=== PATIENT | male | born 1980 | race African-American/Black ===

== ENCOUNTER 2017-05-11 20:47 | Inpatient (IN) | payer BC ==
[~2017-05-11] VITALS: Ht 177.8 cm; Wt 88.0 kg
[2017-05-12] VITALS (13 sets, daily range): BP systolic 107–129; BP diastolic 55–83
[2017-05-12] MEDS ORDERED: Morphine Sulfate 2mg/ml Inj IVP PRN ×3 (01:00→13:00)
[2017-05-12] MEDS ORDERED: Zosyn 3.375gm inj ONE (01:45)
[2017-05-12] MEDS ORDERED: D5 1/2NS 1,000 ML IV SCH (02:00)
[2017-05-12] MEDS: Piperacillin/Tazobactam 3.375 GM in D5W 110 ML IVPB SCH ×3 (02:09→19:08)
[2017-05-12] MEDS: Norco 5mg/325mg tab ORAL PRN (05:25)
[2017-05-12 06:45] LABS: BASOPHILS % (AUTO) 0.6 % (0.0-2.0); EOSINOPHILS % (AUTO) 0.5 % (0.0-3.0); MEAN CORPUSCULAR HEMOGLOBIN 32.2 PG (27.0-31.0); MEAN CORPUSCULAR VOLUME 98 FL (80-99); MEAN PLATELET VOLUME 11.3 FL (6.5-10.1); MONOCYTES % (AUTO) 6.7 % (1.0-10.0); NEUTROPHILS % (AUTO) 79.1 % (45.0-75.0); PLATELET COUNT 142 K/UL (150-450); RED BLOOD COUNT 4.29 M/UL (4.70-6.10); RED CELL DISTRIBUTION WIDTH 12.1 % (11.6-14.8); WHITE BLOOD COUNT 9.2 K/UL (4.8-10.8)
[2017-05-12 07:39] LABS: ALANINE AMINOTRANSFERASE 9 U/L (3-41); ANION GAP 11 (5-15); ASPARTATE AMINO TRANSFERASE 19 U/L (5-40); CALCIUM 8.8 mg/dL (8.6-10.2); CARBON DIOXIDE 25 mEQ/L (20-30); CHLORIDE 101 mEQ/L (98-107); CREATININE 1.2 mg/dL (0.7-1.2); GLOMERULAR FILTRATION RATE > 60 mL/min (>60); HEMOLYSIS 2; MAGNESIUM 1.8 mg/dL (1.7-2.5); PHOSPHORUS 2.7 mg/dL (2.5-4.8); POTASSIUM 3.8 mEQ/L (3.4-4.9); SODIUM 137 mEQ/L (135-145); TOTAL PROTEIN 6.6 g/dL (6.6-8.7)
[2017-05-12 08:00] LABS: BILIRUBIN,DIRECT 0.3 mg/dL (0.1-0.3)
[2017-05-12] MEDS ORDERED: Acetaminophen 650 MG SUPP RECTAL PRN (09:45)
--- NOTE | 2017-05-12 09:59 | Consultation ---
History of Present Illness General Date patient seen: May 12, 2017 Time patient seen: 09:15 Chief Complaint: abd pain , Referring physician: dr Whatley Reason for Consultation: inpatient management Present Illness HPI 37 y/o male w/out any significant medical history ( except hx of umbilical hernia repair as a child) transferred from [facility] with abdominal pain x 3 days, nausea. no vomiting, Fevers and chills No BM Workup in [place] ( CT A/P) revealed acute appy, possible perforation due to presence of foci of pneumoperitoneum in the non-dependent abdomen abdomen US revealed no gallstones, negative [place] patient started on IV abx( Zosyn), IVF, kept NPO, a/emetic provided and [place] [facility] Currently admits to diffused abdominal pain, nausea, no vomiting, no BM Pain nonradiating, 4-5/on a scale 1 to 10 Allergies: Coded Allergies: No Known Allergies (Unverified , 05/11/17) Patient History History Provided By: Patient Healthcare decision maker Resuscitation status Full Code Advanced Directive on File Yes Review of Systems Constitutional: Reports: see HPI Eye: Reports: no symptoms ENT: Reports: no symptoms Respiratory: Reports: no symptoms Gastrointestinal: Reports: see HPI Genitourinary: Reports: no symptoms Musculoskeletal: Reports: no symptoms Skin: Reports: no symptoms Psychiatric: Reports: no symptoms Neurological: Reports: no symptoms Endocrine: Reports: no symptoms Hematologic/Lymphatic: Reports: no symptoms Physical Exam General Appearance: no apparent distress, alert Lines, tubes and drains: peripheral HEENT: normocephalic, atraumatic, anicteric Neck: supple Respiratory/Chest: lungs clear, no respiratory distress, no accessory muscle use Cardiovascular/Chest: normal peripheral pulses, normal rate, regular rhythm Abdomen: other - distended, diffused tenderness ower abdomen, more on the right , no rigidity, no rebound; hypoactive BS Extremities: normal range of motion, non-tender, no calf tenderness, normal capillary refill Skin Exam: normal pigmentation, warm/dry 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, no motor/sensory deficits, alert, oriented x 3, responsive Musculoskeletal: normal muscle bulk Last 24 Hour Vital Signs Date Time Temp Pulse Resp B/P Pulse Ox O2 Delivery O2 Flow Rate FiO2 05/12/17 08:00 98.2 70 20 122/83 96 Room Air 05/12/17 04:00 99.5 92 20 109/76 94 Room Air Intake and Output 05/11/17 05/12/17 19:00 07:00 Intake Total 110.0 ml Balance 110.0 ml Intake IV Total 110.0 ml # Voids 1 Laboratory Tests Test 05/12/17 05:05 White Blood Count 9.2 K/UL (4.8-10.8) Red Blood Count 4.29 M/UL (4.70-6.10) L Hemoglobin 13.8 G/DL (14.2-18.0) L Hematocrit 41.8 % (42.0-52.0) L Mean Corpuscular Volume 98 FL (80-99) Mean Corpuscular Hemoglobin 32.2 PG (27.0-31.0) H Mean Corpuscular Hemoglobin Concent 33.0 G/DL (32.0-36.0) Red Cell Distribution Width 12.1 % (11.6-14.8) Platelet Count 142 K/UL (150-450) L Mean Platelet Volume 11.3 FL (6.5-10.1) H Neutrophils (%) (Auto) 79.1 % (45.0-75.0) H Lymphocytes (%) (Auto) 13.0 % (20.0-45.0) L Monocytes (%) (Auto) 6.7 % (1.0-10.0) Eosinophils (%) (Auto) 0.5 % (0.0-3.0) Basophils (%) (Auto) 0.6 % (0.0-2.0) Sodium Level 137 mEQ/L (135-145) Potassium Level 3.8 mEQ/L (3.4-4.9) Chloride Level 101 mEQ/L (98-107) Carbon Dioxide Level 25 mEQ/L (20-30) Anion Gap 11 (5-15) Blood Urea Nitrogen 11 mg/dL (7-23) Creatinine 1.2 mg/dL (0.7-1.2) Estimat Glomerular Filtration Rate > 60 mL/min (>60) Glucose Level 99 mg/dL (74-106) Calcium Level 8.8 mg/dL (8.6-10.2) Phosphorus Level 2.7 mg/dL (2.5-4.8) Magnesium Level 1.8 mg/dL (1.7-2.5) Total Bilirubin 2.3 mg/dL (0.0-1.2) H Direct Bilirubin 0.3 mg/dL (0.1-0.3) Aspartate Amino Transf (AST/SGOT) 19 U/L (5-40) Alanine Aminotransferase (ALT/SGPT) 9 U/L (3-41) Alkaline Phosphatase 59 U/L (40-129) Total Protein 6.6 g/dL (6.6-8.7) Albumin 3.3 g/dL (3.5-5.2) L Globulin 3.3 g/dL Albumin/Globulin Ratio 1.0 (1.0-2.7) Height (Feet): 5 Height (Inches): 10.00 Weight (Pounds): 194 Medications Current Medications Medications (Trade) Dose Ordered Sig/Jonnie Route PRN Reason Start Time Stop Time Status Last Admin Dose Admin Acetaminophen (Tylenol) 650 mg Q4H PRN ORAL FEVER 05/12/17 09:00 06/11/17 08:59 Acetaminophen (Tylenol) 650 mg Q4H PRN ORAL Mild Pain (Pain Scale 1-3) 05/12/17 09:00 06/11/17 08:59 Acetaminophen (Tylenol) 650 mg Q4H PRN RECTAL Prn Headache/Temp > 100.5 05/12/17 09:45 06/11/17 09:44 Acetaminophen/ Hydrocodone Bitart ([place] 5/325) 1 tab Q6H PRN ORAL Moderate Pain (Pain Scale 4-6) 05/12/17 01:00 05/19/17 00:59 05/12/17 05:25 Bisacodyl (Dulcolax) 10 mg DAILYPRN PRN RECTAL Constipation 05/12/17 09:00 06/11/17 08:59 Dextrose/Sodium Chloride (D5 0.45% NS) 1,000 ml @ 100 mls/hr Q10H IV 05/12/17 02:00 06/11/17 01:59 05/12/17 02:08 Morphine Sulfate (Morphine Sulfate) 2 mg Q4H PRN IVP Severe Pain (Pain Scale 7-10) 05/12/17 01:00 05/19/17 00:59 Ondansetron HCl (Zofran) 4 mg Q6H PRN IVP Nausea & Vomiting 05/12/17 01:00 06/11/17 00:59 Piperacillin Sod/ Tazobactam Sod 3.375 gm/Dextrose 110 ml @ 27.5 mls/hr Q8H IVPB 05/12/17 02:00 05/19/17 01:59 05/12/17 02:09 Polyethylene Glycol (Miralax) 17 gm DAILY PRN ORAL Constipation 05/12/17 09:00 06/11/17 08:59 Temazepam (Restoril) 15 mg HSPRN PRN ORAL Insomnia 05/12/17 09:00 05/19/17 08:59 Assessment/Plan Assessment/Plan ASSESSMENT acute appy possible perforation possible ileus hx of umbilical hernia repair ( as a child) PLAN OF CARE [facility] floor NPO IVF empiric abx surgery consult pain management a/emetic prn case discussed and evaluated by supervising physician Shelli Alvarez (Vanchtein) [employer]ATH HOUSE ATTENDANT May 12, 2017 09:59
--- NOTE | 2017-05-12 10:00 | Consultation ---
History of Present Illness General Date patient seen: May 12, 2017 Reason for Consultation: acute appendicitis Present Illness HPI 37 year old otherwise healthy male with acute appendicitis. Patient states that he noted some vague cramping lower abdominal pain 2 days ago. Since pain has worsened and localized to RLQ. Was unable to walk because of pain. Pain currently sharp RLQ / lower abdominal pain. Went to outside facility where he had CT scan which demonstrated acute appendicitis with possible small perforation. He was transferred to [facility] [place] for care. States that he is better now because of pain medication but still notes pain in lower abdomen. no nausea or emesis. subjective fevers. Leukocytosis of 11k at outside facility. Allergies: Coded Allergies: No Known Allergies (Unverified , 05/11/17) Patient History History Provided By: Patient Healthcare decision maker Resuscitation status Full Code Advanced Directive on File Yes Past Medical/Surgical History Past Medical/Surgical History: (1) History of umbilical hernia repair (2) Appendicitis with perforation Review of Systems Constitutional: Denies: chills, fever, malaise, no symptoms, other, see HPI, sweats, weakness Eye: Denies: acuity changes, blurred vision, discharge, double vision, eye pain , no symptoms, nose congestion, nose pain, other, see HPI, tearing ENT: Denies: ear discharge, ear pain, hearing loss, mouth pain, nasal discharge , no symptoms, nose congestion, nose pain, other, see HPI, throat pain, throat swelling Respiratory: Denies: AGUILAR, cough, no symptoms, orthopnea, other, see HPI, shortness of breath, sputum, stridor, wheezing Cardiovascular: Denies: PND, chest pain, edema, no symptoms, other, palpitations, see HPI, syncope Gastrointestinal: Reports: abdominal pain Genitourinary: Denies: discharge, dysuria, frequency, hematuria, incontinence, no symptoms, other, pain, retention, see HPI, urgency, vag bleed/dc Musculoskeletal: Denies: back pain, gout, joint pain, joint swelling, muscle pain, muscle stiffness, no symptoms, other, see HPI Skin: Denies: change in color, change in hair/nails, dryness, lesions, no symptoms, other, rash, see HPI Psychiatric: Denies: HI, SI, anxiety, depressed feelings, emotional problems, hallucinations, no symptoms, other, prior hx, see HPI Neurological: Denies: dizziness, focal weakness, headache, no symptoms, numbness, other, paresthesia, see HPI, seizure, syncope, tingling, tremors Endocrine: Denies: excessive sweating, flushing, increased thirst, increased urine, intolerance to temperature, no symptoms, other, see HPI, unexplained weight loss Hematologic/Lymphatic: Denies: anemia, blood clots, diathesis, easy bleeding, easy bruising, no symptoms, other, see HPI, swollen glands Physical Exam General Appearance: WD/WN, no apparent distress, alert Lines, tubes and drains: peripheral HEENT: normocephalic, PERRL Neck: normal inspection Respiratory/Chest: normal breath sounds, no respiratory distress, no accessory muscle use Cardiovascular/Chest: normal peripheral pulses, normal rate, regular rhythm Abdomen: normal bowel sounds, soft, no organomegaly, no mass, guarding, rebound , tender Extremities: normal range of motion, normal inspection Skin Exam: normal pigmentation Neurologic: alert, oriented x 3, responsive Last 24 Hour Vital Signs Date Time Temp Pulse Resp B/P Pulse Ox O2 Delivery O2 Flow Rate FiO2 05/12/17 08:00 98.2 70 20 122/83 96 Room Air 05/12/17 04:00 99.5 92 20 109/76 94 Room Air Intake and Output 05/11/17 05/12/17 19:00 07:00 Intake Total 110.0 ml Balance 110.0 ml Intake IV Total 110.0 ml # Voids 1 Laboratory Tests Test 05/12/17 05:05 White Blood Count 9.2 K/UL (4.8-10.8) Red Blood Count 4.29 M/UL (4.70-6.10) L Hemoglobin 13.8 G/DL (14.2-18.0) L Hematocrit 41.8 % (42.0-52.0) L Mean Corpuscular Volume 98 FL (80-99) Mean Corpuscular Hemoglobin 32.2 PG (27.0-31.0) H Mean Corpuscular Hemoglobin Concent 33.0 G/DL (32.0-36.0) Red Cell Distribution Width 12.1 % (11.6-14.8) Platelet Count 142 K/UL (150-450) L Mean Platelet Volume 11.3 FL (6.5-10.1) H Neutrophils (%) (Auto) 79.1 % (45.0-75.0) H Lymphocytes (%) (Auto) 13.0 % (20.0-45.0) L Monocytes (%) (Auto) 6.7 % (1.0-10.0) Eosinophils (%) (Auto) 0.5 % (0.0-3.0) Basophils (%) (Auto) 0.6 % (0.0-2.0) Sodium Level 137 mEQ/L (135-145) Potassium Level 3.8 mEQ/L (3.4-4.9) Chloride Level 101 mEQ/L (98-107) Carbon Dioxide Level 25 mEQ/L (20-30) Anion Gap 11 (5-15) Blood Urea Nitrogen 11 mg/dL (7-23) Creatinine 1.2 mg/dL (0.7-1.2) Estimat Glomerular Filtration Rate > 60 mL/min (>60) Glucose Level 99 mg/dL (74-106) Calcium Level 8.8 mg/dL (8.6-10.2) Phosphorus Level 2.7 mg/dL (2.5-4.8) Magnesium Level 1.8 mg/dL (1.7-2.5) Total Bilirubin 2.3 mg/dL (0.0-1.2) H Direct Bilirubin 0.3 mg/dL (0.1-0.3) Aspartate Amino Transf (AST/SGOT) 19 U/L (5-40) Alanine Aminotransferase (ALT/SGPT) 9 U/L (3-41) Alkaline Phosphatase 59 U/L (40-129) Total Protein 6.6 g/dL (6.6-8.7) Albumin 3.3 g/dL (3.5-5.2) L Globulin 3.3 g/dL Albumin/Globulin Ratio 1.0 (1.0-2.7) Height (Feet): 5 Height (Inches): 10.00 Weight (Pounds): 194 Medications Current Medications Medications (Trade) Dose Ordered Sig/Jonnie Route PRN Reason Start Time Stop Time Status Last Admin Dose Admin Acetaminophen (Tylenol) 650 mg Q4H PRN ORAL FEVER 05/12/17 09:00 06/11/17 08:59 Acetaminophen (Tylenol) 650 mg Q4H PRN ORAL Mild Pain (Pain Scale 1-3) 05/12/17 09:00 06/11/17 08:59 Acetaminophen (Tylenol) 650 mg Q4H PRN RECTAL Prn Headache/Temp > 100.5 05/12/17 09:45 06/11/17 09:44 Acetaminophen/ Hydrocodone Bitart ([place] 5/325) 1 tab Q6H PRN ORAL Moderate Pain (Pain Scale 4-6) 05/12/17 01:00 05/19/17 00:59 05/12/17 05:25 Bisacodyl (Dulcolax) 10 mg DAILYPRN PRN RECTAL Constipation 05/12/17 09:00 06/11/17 08:59 Dextrose/Sodium Chloride (D5 0.45% NS) 1,000 ml @ 100 mls/hr Q10H IV 05/12/17 02:00 06/11/17 01:59 05/12/17 02:08 Morphine Sulfate (Morphine Sulfate) 2 mg Q4H PRN IVP Severe Pain (Pain Scale 7-10) 05/12/17 01:00 05/19/17 00:59 Ondansetron HCl (Zofran) 4 mg Q6H PRN IVP Nausea & Vomiting 05/12/17 01:00 06/11/17 00:59 Piperacillin Sod/ Tazobactam Sod 3.375 gm/Dextrose 110 ml @ 27.5 mls/hr Q8H IVPB 05/12/17 02:00 05/19/17 01:59 05/12/17 02:09 Polyethylene Glycol (Miralax) 17 gm DAILY PRN ORAL Constipation 05/12/17 09:00 06/11/17 08:59 Temazepam (Restoril) 15 mg HSPRN PRN ORAL Insomnia 05/12/17 09:00 05/19/17 08:59 Assessment/Plan Problem List: (1) Appendicitis with perforation Assessment & Plan: 37M acute appendicitis. Low grade fevers, labs okay, exam with focal RLQ tenderness, rebound, guarding, CT scan with acute appy possible perforation. -NPO with IV fluids -IV Abx -To OR for lap vs open appendectomy -Consent in chart ICD Codes: K35.2 - Acute appendicitis with generalized peritonitis SNOMED: [id number], [id number] Status: stable [email or web address] May 12, 2017 10:00
--- NOTE | 2017-05-12 10:01 | Pre-Procedure Note/Attestation ---
Pre-Procedure Note/Attestation Complete Prior to Procedure Planned Procedure: not applicable Procedure Narrative: lap vs open appendectomy Indications for Procedure Pre-Operative Diagnosis: acute appendicitis Attestation I attest that I discussed the nature of the procedure; its benefits; risks and complications; and alternatives (and the risks and benefits of such alternatives ), prior to the procedure, with the patient (or the patient's legal assistance representative). I attest that, if there was a reasonable possibility of needing a blood transfusion, the patient (or the patient's legal assistance representative) was given the [facility] standardized written summary, pursuant to the [place] Blood Safety Act ([place] Health and Safety Code # 1645, as amended). I attest that I re-evaluated the patient just prior to the surgery and that there has been no change in the patient's H&P, except as documented below: Timothy Pacheco May 12, 2017 10:01
[2017-05-12 10:22] LABS: INR 1.1 (0.9-1.1); PROTHROMBIN TIME 11.2 SEC (9.30-11.50)
[2017-05-12] MEDS ORDERED: Propofol 10mg/ml 20ml IV ONE ×2 (11:00→11:04)
[2017-05-12] MEDS ORDERED: NS Irrig 2000ml IRRIG ONE ×2 (11:00→11:34)
[2017-05-12] MEDS ORDERED: Ketorolac 30mg Inj ONE (11:00)
[2017-05-12] MEDS ORDERED: Bupivacaine w/Epi 0.5% 30ml Vial INJ ONE (11:00)
[2017-05-12] MEDS ORDERED: Glycopyrrolate 0.2mg/ml 1ml Vial ONE (11:00)
[2017-05-12] MEDS ORDERED: Zemuron 50mg/5ml Inj IV ONE (11:00)
[2017-05-12] MEDS ORDERED: Neostigmine 1mg/ml 10ml Inj ONE (11:00)
[2017-05-12] MEDS ORDERED: fentaNYL 100 mcg/2 mL IV ONE (11:00)
[2017-05-12] MEDS ORDERED: Midazolam 2mg/2ml Inj ONE (11:00)
[2017-05-12] MEDS ORDERED: Sterile Water Irrig 1000ml IRRIG ONE (11:00)
[2017-05-12] MEDS ORDERED: LR 1000ml ONE (11:00)
[2017-05-12] MEDS ORDERED: LR 1000ml 1,000 ML IVLG SCH (11:55)
--- NOTE | 2017-05-12 11:55 | Anethesia Preoperative Eval ---
Anesthesia Pre-op PMH/ROS General Date of Evaluation: May 12, 2017 Time of Evaluation: 10:57 Anesthesiologist: rosina ASA Score: ASA 2 Mallampati Score Class I : Soft palate, uvula, fauces, pillars visible Class II: Soft palate, uvula, fauces visible Class III: Soft palate, base of uvula visible Class IV: Only hard plate visible Mallampati Classification: Class II Surgeon: Josse Diagnosis: Acute appendicitis Surgical Procedure: Laparoscopic appendectomy Anesthesia History: none Family History: no anesthesia problems Allergies: Coded Allergies: No Known Allergies (Unverified , 05/11/17) Medications: see eMAR Past Medical History Cardiovascular: Denies: CAD, HTN, [place], arrhythmia, other, valve dz Pulmonary: Denies: COPD, DAVIN, asthma, other Gastrointestinal/Genitourinary: Reports: GERD - mild, Denies: CRI, ESRD, other Neurologic/Psychiatric: Denies: CVA, TIA, dementia, depression/anxiety, other Endocrine: Denies: DM, hypothyroidism, other, steroids HEENT: Denies: [place] (L), [place] (R), cataract (L), cataract (R), glaucoma, other Hematology/Immune: Denies: DVT, anemia, bleeding disorder, other Musculoskeletal/Integumentary: Denies: DDD, DJD, OA, RA, edema, other PMH Narrative: as above admitted for acute abdominal pain PSxH Narrative: Hernia repair Anesthesia Pre-op Phys. Exam Physician Exam Last Vital Signs Date Time Temp Pulse Resp B/P Pulse Ox O2 Delivery O2 Flow Rate FiO2 05/12/17 11:08 98.2 05/12/17 08:00 70 20 122/83 96 Room Air Constitutional: NAD Neurologic: CN 2-12 intact Cardiovascular: RRR, no M/R/G Respiratory: CTA Gastrointestinal: other - some tenderness Airway Exam Mallampati Score: Class II MO: full Neck: flexible ROM: full Teeth: intact Dentures: no lower, no upper Anesthesia Pre-op A/P Labs Hematology Test 05/12/17 05:05 White Blood Count 9.2 K/UL (4.8-10.8) Red Blood Count 4.29 M/UL (4.70-6.10) L Hemoglobin 13.8 G/DL (14.2-18.0) L Hematocrit 41.8 % (42.0-52.0) L Mean Corpuscular Volume 98 FL (80-99) Mean Corpuscular Hemoglobin 32.2 PG (27.0-31.0) H Mean Corpuscular Hemoglobin Concent 33.0 G/DL (32.0-36.0) Red Cell Distribution Width 12.1 % (11.6-14.8) Platelet Count 142 K/UL (150-450) L Mean Platelet Volume 11.3 FL (6.5-10.1) H Neutrophils (%) (Auto) 79.1 % (45.0-75.0) H Lymphocytes (%) (Auto) 13.0 % (20.0-45.0) L Monocytes (%) (Auto) 6.7 % (1.0-10.0) Eosinophils (%) (Auto) 0.5 % (0.0-3.0) Basophils (%) (Auto) 0.6 % (0.0-2.0) Coagulation Test 05/12/17 06:30 Prothrombin Time 11.2 SEC (9.30-11.50) Prothromb Time International Ratio 1.1 (0.9-1.1) Activated Partial Thromboplast Time 37 SEC (23-33) H Chemistry Test 05/12/17 05:05 Sodium Level 137 mEQ/L (135-145) Potassium Level 3.8 mEQ/L (3.4-4.9) Chloride Level 101 mEQ/L (98-107) Carbon Dioxide Level 25 mEQ/L (20-30) Anion Gap 11 (5-15) Blood Urea Nitrogen 11 mg/dL (7-23) Creatinine 1.2 mg/dL (0.7-1.2) Estimat Glomerular Filtration Rate > 60 mL/min (>60) Glucose Level 99 mg/dL (74-106) Calcium Level 8.8 mg/dL (8.6-10.2) Phosphorus Level 2.7 mg/dL (2.5-4.8) Magnesium Level 1.8 mg/dL (1.7-2.5) Total Bilirubin 2.3 mg/dL (0.0-1.2) H Direct Bilirubin 0.3 mg/dL (0.1-0.3) Aspartate Amino Transf (AST/SGOT) 19 U/L (5-40) Alanine Aminotransferase (ALT/SGPT) 9 U/L (3-41) Alkaline Phosphatase 59 U/L (40-129) Total Protein 6.6 g/dL (6.6-8.7) Albumin 3.3 g/dL (3.5-5.2) L Globulin 3.3 g/dL Albumin/Globulin Ratio 1.0 (1.0-2.7) Risk Assessment & Plan Assessment: ASA 2 E Plan: GA with ETT Status Change Before Surgery: No Pre-Antibiotics Drug: Ancef 1 gr. Given Within 1 Hr of Incision: Yes Time Given: 11:24 LYSSA PORRAS M.D. May 12, 2017 11:55
[2017-05-12] MEDS ORDERED: Hydromorphone 0.5mg/0.5ml inj IVP PRN (12:00)
[2017-05-12] MEDS ORDERED: Meperidine 25mg/0.5ml Inj IV PRN (12:00)
[2017-05-12] MEDS ORDERED: Ketorolac 30mg Inj IV PRN (12:00)
[2017-05-12] MEDS ORDERED: Metoclopramide 10mg/2ml Inj IVP PRN (12:00)
[2017-05-12] MEDS ORDERED: DiphenhydrAMINE 50mg/ml Inj IVP PRN (12:00)
--- NOTE | 2017-05-12 12:52 | Brief Operative Note ---
Immediate Post Operative Note Operative Note Pre-op Diagnosis: acute appendicitis Procedure: laparoscopic appendectomy Post-op Diagnosis: Acute Superlative appendicitis Surgeon: Tara Additional Surgeons: Josse Anesthesiologist: Yury Anesthesia: general Specimen: yes - appendix Complications: none Condition: stable Fluids: see records Estimated Blood Loss: minimal Drains: ALESIA Implant(s) used?: No Timothy Pacheco May 12, 2017 12:52
[2017-05-12] MEDS ORDERED: Ketorolac 30mg Inj IM PRN (13:00)
--- NOTE | 2017-05-12 13:04 | Immediate Post-Op Evaluation ---
Immediate Post-Op Evalulation Immediate Post-Op Evalulation Procedure: Laparoscopic appendectomy Date of Evaluation: May 12, 2017 Time of Evaluation: 13:03 IV Fluids: 1000 Blood Products: none Estimated Blood Loss: 50 Urinary Output: none Blood Pressure Systolic: 107 Blood Pressure Diastolic: 55 Pulse Rate: 76 Respiratory Rate: 20 O2 Sat by Pulse Oximetry: 99 Temperature (Fahrenheit): 97.6 Pain Score (1-10): 2 Nausea: No Vomiting: No Complications none Patient Status: reacts, patent, extubated, none Hydration Status: adequate LYSSA PORRAS M.D. May 12, 2017 13:04
--- NOTE | 2017-05-12 13:27 | Consultation ---
Consult Note Consult Note ID DIC# [id number] SUSAN NICHOLS M.D. May 12, 2017 13:27
--- NOTE | 2017-05-12 14:13 | History & Physical ---
History and Physical History & Physicial Dictated for Int Med-Dr Whatley no. [id number]. CATE PULIDO May 12, 2017 14:13
--- NOTE | 2017-05-12 16:16 | Consultation ---
DATE OF CONSULTATION: INFECTIOUS DISEASES CONSULTATION CONSULTING PHYSICIAN: Cesar Shane M.D. REQUESTING PHYSICIAN: 1. Misael Whatley M.D. 2. Darron Wilson M.D. REASON FOR CONSULTATION: Evaluation of the patient for perforated appendicitis and antibiotic management. HISTORY OF PRESENT ILLNESS: The patient is a 37-year-old male, who was admitted to this medical center for abdominal pain x2 days. CT scan reported, which showed evidence of acute appendicitis and possibly small perforation. At the time of my review, the patient was taken for surgery. Most of the information gathered through the chart. PAST MEDICAL HISTORY: None. ALLERGIES: No known drug allergies. MEDICATIONS: IV Zosyn. SOCIAL HISTORY: Unavailable. FAMILY HISTORY: Unavailable. REVIEW OF SYSTEMS: Unobtainable at this point, the patient not available in the room. PHYSICAL EXAMINATION: VITAL SIGNS: Blood pressure is 107/55, pulse rate 80, respiratory rate 18, and T-max 99.5. LABORATORY AND DIAGNOSTIC DATA: White blood cell count 9.2, hemoglobin 13.8, and platelets 142,000. BUN 11 and creatinine 1.2. ALT, AST, and alkaline phosphatase are unremarkable. CT is pending. ASSESSMENT: The patient is a 37-year-old male with possible perforated appendicitis with leukocytosis. The patient was taken for appendectomy. At this time, the patient benefit from antibiotic treatment. We will get further information from the findings at the time of surgery. PLAN: 1. We will continue the patient on Zosyn. If the patient has perforated appendicitis, he may fail antibiotics soon. 2. Otherwise, we will continue antibiotics until the patient completely recovers. 3. Monitor CBC. 4. Monitor BMP. 5. We will follow the final official CT report. 6. We will follow surgical postop note. 7. Based on the patient's clinical course and labs, we will do further recommendations. Thank you for this consultation. I will follow the patient with you during this admission. Cesar Shane M.D. DR: THAIS JOB#: [id number] CC:
[2017-05-12] MEDS: Morphine Sulfate 4mg/ml Inj IVP PRN ×2 (16:24→23:21)
--- NOTE | 2017-05-12 16:46 | History and Physical Report ---
DATE OF ADMISSION: 05/11/2017 CHIEF COMPLAINT: The patient is a 37-year-old male, presents with complaint of abdominal pain. HISTORY OF PRESENT ILLNESS: Began two days prior to admission. The patient began to have cramping in the lower abdomen. The patient states the pain is now localized to the right lower quadrant. The patient has been unable to walk because of the pain. The patient states the pain is sharp in the right lower quadrant. The patient presented to [facility] emergency room. The patient was found to have appendicitis with possible perforation. The patient is transferred to [facility] for insurance purposes. The patient is admitted for acute appendicitis. PAST MEDICAL HISTORY: The patient denies. PAST SURGICAL HISTORY: Significant for umbilical hernia repair. MEDICATIONS: Current medications, the patient denies. ALLERGIES: No known drug allergies. 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 The patient denies tobacco or alcohol use. REVIEW OF SYSTEMS: Constitutional: The patient denies weight loss or weight gain. The patient denies fevers or chills. HEENT: The patient denies ear or throat pain. Cardiovascular: The patient denies palpitations or chest pain. Chest: Denies wheeze or shortness of breath. Abdominal: The patient complains of abdominal pain as above. The patient complains of some nausea. The patient denies vomiting. The patient denies diarrhea or constipation. Genitourinary: The patient denies dysuria or increased frequency urination. Neuromuscular: The patient denies seizures or generalized weakness. PHYSICAL EXAMINATION: GENERAL: The patient is a well-developed and well-nourished male, in no apparent distress. VITAL SIGNS: Temperature 98.8 degrees, respirations 16, pulse 68, and blood pressure 116/69. HEENT: Eyes, pupils are equal and responsive to light and accommodation. Extraocular movements are intact. NECK: Supple without lymphadenopathy. CHEST: Lungs are clear auscultation bilaterally without wheezes or rales. CARDIOVASCULAR: Regular rhythm and rate S1 and S2 are normal without murmurs, rubs, or gallops. ABDOMEN: Soft and tender to palpation to right lower quadrant. No rebound or guarding. EXTREMITIES: Negative for clubbing, cyanosis, or edema. RECTAL/GENITAL: Refused. NEUROLOGIC: Cranial nerves II through XII grossly intact without focal deficits. Motor strength is 5/5 bilaterally. Deep tendon reflexes are 2+ plantar. LABORATORY AND DIAGNOSTIC DATA: WBC 9.2, hemoglobin 13.8, hematocrit 41.8 and platelets 142,000. Sodium 137, potassium 3.8, chloride 101, CO2 25, BUN 11, creatinine 1.2, and glucose 99. Total bilirubin elevated at 2.3. Pro-time 11.2, INR 1.1, and PTT 37. ASSESSMENT: This is a 37-year-old male 1. Right lower quadrant pain. 2. Nausea without vomiting. 3. Acute appendicitis. TREATMENT: 1. Acute appendicitis. A General Surgery consultation has been obtained with Dr. Timothy Pacheco. We will follow recommendations of General Surgery. The patient will require emergent appendectomy. The patient has been started empirically on antibiotics per ID. The patient is currently on Zosyn intravenously. 2. Nausea with vomiting. The patient has been started empirically on Zofran. 3. Abdominal pain. The patient has been started on intravenous Dilaudid. Darron Wilson M.D. DR: LINDA JOB#: [id number] CC:
--- NOTE | 2017-05-12 21:46 | Operative Note - Dictated ---
DATE OF OPERATION: 05/12/2017 PREOPERATIVE DIAGNOSIS: Acute appendicitis. POSTOPERATIVE DIAGNOSIS: Acute suppurative appendicitis. OPERATION PERFORMED: Laparoscopic appendectomy. ATTENDING SURGEON: Timothy Torres M.D. WEDDING FLORIST SURGEON: Maurice Loaiza M.D. ANESTHESIOLOGIST: Jerald Cotton M.D. ANESTHESIA: General, GETA. ESTIMATED BLOOD LOSS: Minimal. IV FLUIDS: Please see anesthesia records. WOUND CLASSIFICATION: Class III. COMPLICATIONS: None. SPONGE AND NEEDLE COUNT: Correct x2. DRAINS: A 19-Filipino Evgeny drain left in the pelvis. ANTIBIOTICS: The patient was on scheduled IV Zosyn 3.375 g q. 6 hours for therapeutic treatment. SPECIMENS: Appendix sent to pathology for review. OPERATIVE FINDINGS: 1. Serous ascites noted in the abdomen. 2. Acute suppurative appendicitis with potential small microperforation. 3. Appendix with adhesions to the pelvis and adjacent small bowel. 4. Successful appendectomy with linear stapler base of the appendix and mesoappendix. 5. ALESIA drain left in the pelvis. INDICATIONS FOR PROCEDURE: This is a 37-year-old male, who was transferred to [facility] after being diagnosed with acute appendicitis. The patient stated that approximately two days ago noted some vague lower abdominal pain, which then localized to right lower quadrant. As pain worsened, the patient was having difficulty walking and went to an urgent care, which instructed him to go to the emergency department immediately. The patient went to outside facility emergency department, at which time had a CT scan and further workup identifying leukocytosis of 11,000, focal right lower quadrant tenderness with rebound and CT scan consistent with acute appendicitis. The patient was transferred to [facility] for remainder of his care. When seen, the patient stated that the pain medications would help him with the pain, but he continued to have lower abdominal discomfort. On examination, the patient was noted to have focal right lower quadrant peritonitis, McBurney's point tenderness, and a Rovsing sign with rebound and guarding. The patient's CT was reviewed and he was noted to have acute appendicitis with a question of potential perforation. The risks, benefits, and alternatives to surgery were discussed with the patient in detail. The patient expressed understanding and consented to surgery. The patient is scheduled for laparoscopic possible open appendectomy. OPERATIVE NOTE: The patient was taken to the operating room and placed on the operating table in the supine position with bilateral arms up. All bony prominence were well padded with gel pads. No Moore was placed given the patient had voided prior to entering the operating room. SCDs were placed. The patient was on scheduled IV Zosyn prior to entering the operating room. Preoperative time-out was taken to identify the patient, procedure, operating staff, and surgical staff. General anesthesia was induced and the patient was intubated. The abdomen was then prepped and draped in standard surgical fashion. We began by making an infraumbilical incision using a fresh #15 blade, which was then carried down to the fascia. The fascia was elevated and incised and entered into the abdomen and the abdomen was confirmed visually using the open Lenard technique. Once entering, the abdomen was identified without complication. A 12 mm trocar was placed and the abdomen was insufflated 12 to 15 mmHg. Of note, upon entering the abdomen, there was significant amount of serous ascites that was evacuated. Once the abdomen was insufflated with 12 to 15 mmHg, a laparoscope was inserted and the abdomen was inspected. There was a fair amount of serous fluid noted within all quadrants of the abdomen. The liver and gallbladder were identified and looked otherwise healthy. No abnormalities were noted in the upper quadrants. In the pelvis, there was a significant amount of inflammation and this was where the appendix was believed to be. There were some areas of fibrinous tissue likely from potential microperforation or suppurative appendicitis. At this time, decision was made to place secondary trocars. A 12 mm trocar was placed in the left lower quadrant followed by a 5 mm trocar in the right upper quadrant. The cecum was identified and grasped and the base of the appendix was noted. The base of the appendix was healthy and most of the disease was in the tip and the mid appendix. A window was made in the mesentery at the base of the appendix. A laparoscopic linear stapler was then inserted and the appendiceal base was divided. Following the mesoappendix was easily identified and divided with laparoscopic linear stapler as well. The staple lines were evaluated and noted to be intact with no bleeding or other complications. At this time, the appendix was then freed from its pelvic and small bowel inflammatory attachments. Once this was complete, the appendix was placed in endoscopic retrieval bag and removed from the abdomen without complication. There was small bowel that was adhesed to the appendix was evaluated and no perforation or injury to the small bowel was noted. The abdomen was then irrigated with copious amounts of warm normal saline. Given the patient had a lot of serous ascites at the beginning of the procedure, decision was made to leave a 19-Filipino Evgeny drain through the left lower quadrant port and into the pelvis. Once Evgeny drain was placed appropriately, it was sutured to the skin using a 2-0 nylon suture. At this time, the appendix was removed. No other abnormalities are noted within the abdomen and decision made to begin the conclusion of the procedure. The secondary trocars were removed under direct visualization. Once this was completed, the fascia of the umbilical trocar site was closed using a #0 Vicryl suture. The remaining skin incisions were closed using 4-0 Monocryl sutures. Steri-Strips followed by dressings were applied. Drain was placed with suction. The patient tolerated the procedure well, was extubated and taken to the postanesthetic care unit in stable condition. Timothy Pacheco M.D. DR: RAMIRO JOB#: [id number] CC:
[2017-05-12] MEDS ORDERED: Tubing IV Secondary IV ONE (22:58)
[2017-05-12] MEDS ORDERED: D5 1/2NS 1000ml IV ONE (22:58)
[2017-05-13] VITALS: BP 127/66
[2017-05-13] MEDS: Piperacillin/Tazobactam 3.375 GM in D5W 110 ML IVPB SCH ×3 (01:37→18:34)
[2017-05-13 04:00] VITALS: BP 124/63
[2017-05-13] MEDS: Morphine Sulfate 4mg/ml Inj IVP PRN ×2 (07:00→12:36)
[2017-05-13 08:03] VITALS: BP 116/68
[2017-05-13 08:17] LABS: ALANINE AMINOTRANSFERASE 8 U/L (3-41); ALBUMIN/GLOBULIN RATIO 0.9 (1.0-2.7); ANION GAP 12 (5-15); ASPARTATE AMINO TRANSFERASE 18 U/L (5-40); CALCIUM 8.7 mg/dL (8.6-10.2); CARBON DIOXIDE 27 mEQ/L (20-30); CHLORIDE 98 mEQ/L (98-107); CREATININE 1.2 mg/dL (0.7-1.2); GLOMERULAR FILTRATION RATE > 60 mL/min (>60); HEMOLYSIS 5; MAGNESIUM 1.7 mg/dL (1.7-2.5); PHOSPHORUS 3.4 mg/dL (2.5-4.8); POTASSIUM 3.5 mEQ/L (3.4-4.9); SODIUM 137 mEQ/L (135-145); TOTAL PROTEIN 6.4 g/dL (6.6-8.7)
[2017-05-13 08:37] LABS: BASOPHILS % (AUTO) 0.6 % (0.0-2.0); EOSINOPHILS % (AUTO) 0.8 % (0.0-3.0); LYMPHOCYTES % (AUTO) 19.3 % (20.0-45.0); MEAN CORPUSCULAR HEMOGLOBIN 32.9 PG (27.0-31.0); MEAN CORPUSCULAR HGB CONC 33.6 G/DL (32.0-36.0); MEAN CORPUSCULAR VOLUME 98 FL (80-99); MEAN PLATELET VOLUME 10.4 FL (6.5-10.1); MONOCYTES % (AUTO) 7.6 % (1.0-10.0); NEUTROPHILS % (AUTO) 71.6 % (45.0-75.0); PLATELET COUNT 146 K/UL (150-450); RED BLOOD COUNT 3.84 M/UL (4.70-6.10); RED CELL DISTRIBUTION WIDTH 12.2 % (11.6-14.8); WHITE BLOOD COUNT 6.6 K/UL (4.8-10.8)
[2017-05-13 08:39] LABS: PROTHROMBIN TIME 10.7 SEC (9.30-11.50)
[2017-05-13 08:41] LABS: BILIRUBIN,DIRECT 0.3 mg/dL (0.1-0.3)
--- NOTE | 2017-05-13 09:10 | 48 Hour Post Anesthesia Eval ---
Post Anesthesia Evaluation Procedure: Laparoscopic appendectomy Date of Evaluation: May 13, 2017 Time of Evaluation: 09:07 Blood Pressure Systolic: 124 0: 72 Pulse Rate: 76 Respiratory Rate: 22 Temperature (Fahrenheit): 97.6 O2 Sat by Pulse Oximetry: 98 Airway: patent Nausea: No Vomiting: No Pain Intensity: 3 Hydration Status: adequate Cardiopulmonary Status: stable Mental Status/LOC: patient returned to baseline Follow-up Care/Observations: n/a Post-Anesthesia Complications: none Follow-up care needed: N/A LYSSA PORRAS M.D. May 13, 2017 09:10
--- NOTE | 2017-05-13 09:46 | Pulmonology Progress Note ---
Assessment/Plan Assessment/Plan ASSESSMENT Acute suppurative appendicitis with potential small microperforation. Appendix with adhesions to the pelvis and adjacent small bowel s/p lap appy 05/12 urinary retention postoperative pain hx of umbilical hernia repair ( as a child) PLAN OF CARE MS floor IVF empiric abx surgery follows monitor ALESIA drain -155 ml for 24 hr pain management a/emetic prn liquid diet as tolerated and advance as per surgery IS while in the bed - teach and encourage to use start Flomax keep Moore in as discussed with surgeon case discussed and evaluated by supervising physician Subjective Allergies: Coded Allergies: No Known Allergies (Unverified , 05/11/17) Subjective low garde fever overnight, afebrile now, no leucocytosis s/p lap appy 05/[address] unable to void , Moore inserted Objective Last 24 Hour Vital Signs Date Time Temp Pulse Resp B/P Pulse Ox O2 Delivery O2 Flow Rate FiO2 05/13/17 09:10 76 22 98 05/13/17 08:03 98.2 64 20 116/68 98 Nasal Cannula 2.0 05/13/17 07:30 98.2 05/13/17 04:00 99.5 64 20 124/63 95 Nasal Cannula 3.0 05/13/17 00:00 99.5 70 18 127/66 96 Room Air 3.0 05/12/17 20:00 99.7 83 20 120/62 95 Room Air 05/12/17 16:00 98.1 77 20 129/61 100 Nasal Cannula 2.0 05/12/17 14:17 98.8 05/12/17 14:00 98.8 60 16 116/69 100 Nasal Cannula 3.0 05/12/17 13:47 77 16 111/66 100 Nasal Cannula 3.0 05/12/17 13:35 62 18 113/63 100 Nasal Cannula 3.0 05/12/17 13:20 60 17 114/67 100 Nasal Cannula 3.0 05/12/17 13:10 61 18 117/62 100 Nasal Cannula 3.0 05/12/17 13:04 76 20 99 05/12/17 13:02 61 16 115/66 100 Simple Mask 6.0 05/12/17 12:57 68 18 113/66 100 Simple Mask 6.0 05/12/17 12:52 99.1 78 21 107/55 100 Simple Mask 6.0 05/12/17 11:08 98.2 Bad tableObjective General Appearance: no apparent distress, alert Lines, tubes and drains: peripheral HEENT: normocephalic, atraumatic, anicteric Neck: supple Respiratory/Chest: lungs clear, no respiratory distress, no accessory muscle use Cardiovascular/Chest: normal peripheral pulses, normal rate, regular rhythm Abdomen: surg incisions with small gauze dressing, dry, mild tenderness, no edema, Extremities: normal range of motion, non-tender, no calf tenderness, normal capillary refill Skin Exam: normal pigmentation, warm/dry 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: 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 safety officer II-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 grossly normal, no motor/sensory deficits, alert, oriented x 3, responsive Musculoskeletal: normal muscle bulk Laboratory Tests 05/13/17 06:30: White Blood Count 6.6, Red Blood Count 3.84L, Hemoglobin 12.6L, Hematocrit 37.7L , Mean Corpuscular Volume 98, Mean Corpuscular Hemoglobin 32.9H, Mean Corpuscular Hemoglobin Concent 33.6, Red Cell Distribution Width 12.2, Platelet Count 146L, Mean Platelet Volume 10.4H, Neutrophils (%) (Auto) 71.6, Lymphocytes (%) (Auto) 19.3L, Monocytes (%) (Auto) 7.6, Eosinophils (%) (Auto) 0.8, Basophils (%) (Auto) 0.6, Prothrombin Time 10.7, Prothromb Time International Ratio 1.0, Activated Partial Thromboplast Time 36H, Sodium Level 137, Potassium Level 3.5, Chloride Level 98, Carbon Dioxide Level 27, Anion Gap 12, Blood Urea Nitrogen 6L, Creatinine 1.2, Estimat Glomerular Filtration Rate > 60, Glucose Level 113H, Calcium Level 8.7, Phosphorus Level 3.4, Magnesium Level 1.7, Total Bilirubin 1.7H, Direct Bilirubin 0.3, Aspartate Amino Transf ( AST/SGOT) 18, Alanine Aminotransferase (ALT/SGPT) 8, Alkaline Phosphatase 43, Total Protein 6.4L, Albumin 3.1L, Globulin 3.3, Albumin/Globulin Ratio 0.9L Current Medications Medications (Trade) Dose Ordered Sig/Jonnie Route PRN Reason Start Time Stop Time Status Last Admin Dose Admin Acetaminophen (Tylenol) 650 mg Q4H PRN ORAL FEVER 05/12/17 09:00 06/11/17 08:59 Acetaminophen (Tylenol) 650 mg Q4H PRN ORAL Mild Pain (Pain Scale 1-3) 05/12/17 09:00 06/11/17 08:59 Acetaminophen (Tylenol) 650 mg Q4H PRN RECTAL Prn Headache/Temp > 100.5 05/12/17 09:45 06/11/17 09:44 Acetaminophen/ Hydrocodone Bitart ([place] 5/325) 1 tab Q6H PRN ORAL Moderate Pain (Pain Scale 4-6) 05/12/17 01:00 05/19/17 00:59 05/12/17 05:25 Bisacodyl (Dulcolax) 10 mg DAILYPRN PRN RECTAL Constipation 05/12/17 09:00 06/11/17 08:59 Ketorolac Tromethamine (Toradol 30mg) 30 mg Q6H PRN IM For Pain 05/12/17 13:00 05/17/17 12:59 Morphine Sulfate (Morphine Sulfate) 1 mg Q4H PRN IVP pain scale 1-3 05/12/17 13:00 05/19/17 12:59 Morphine Sulfate (Morphine Sulfate) 2 mg Q4H PRN IVP pain scale 4-6 05/12/17 13:00 05/19/17 12:59 Morphine Sulfate (Morphine Sulfate) 4 mg Q4H PRN IVP pain score 7-10 05/12/17 13:00 05/19/17 12:59 05/13/17 07:00 Ondansetron HCl (Zofran) 4 mg Q6H PRN IVP Nausea & Vomiting 05/12/17 01:00 06/11/17 00:59 Piperacillin Sod/ Tazobactam Sod/ Dextrose (Zosyn/D5W) 110 ml @ 27.5 mls/hr Q8H IVPB 05/12/17 02:00 05/19/17 01:59 05/13/17 01:37 Polyethylene Glycol (Miralax) 17 gm DAILY PRN ORAL Constipation 05/12/17 09:00 06/11/17 08:59 Temazepam (Restoril) 15 mg HSPRN PRN ORAL Insomnia 05/12/17 09:00 05/19/17 08:59 Shelli Alvarez NP (Vanchtein) May 13, 2017 09:46
[2017-05-13] MEDS ORDERED: D5 1/2NS 1,000 ML IV SCH (10:30)
[2017-05-13 11:46] VITALS: BP 117/75
--- NOTE | 2017-05-13 12:34 | Internal Med Progress Note ---
Subjective Date of Service: May 13, 2017 Physician Name PulidoCate Attending Physician Misael Whatley MD Current Medications Medications (Trade) Dose Ordered Sig/Jonnie Route PRN Reason Start Time Stop Time Status Last Admin Dose Admin Acetaminophen (Tylenol) 650 mg Q4H PRN ORAL FEVER 05/12/17 09:00 06/11/17 08:59 Acetaminophen (Tylenol) 650 mg Q4H PRN ORAL Mild Pain (Pain Scale 1-3) 05/12/17 09:00 06/11/17 08:59 Acetaminophen (Tylenol) 650 mg Q4H PRN RECTAL Prn Headache/Temp > 100.5 05/12/17 09:45 06/11/17 09:44 Acetaminophen/ Hydrocodone Bitart ([place] 5/325) 1 tab Q6H PRN ORAL Moderate Pain (Pain Scale 4-6) 05/12/17 01:00 05/19/17 00:59 05/12/17 05:25 Bisacodyl (Dulcolax) 10 mg DAILYPRN PRN RECTAL Constipation 05/12/17 09:00 06/11/17 08:59 Dextrose/Sodium Chloride (D5 0.45% NS) 1,000 ml @ 75 mls/hr [id number] IV 05/13/17 10:30 06/12/17 10:29 05/13/17 10:20 Ketorolac Tromethamine 30 mg 30 mg Q6H PRN IM For Pain 05/12/17 13:00 05/17/17 12:59 Morphine Sulfate (Morphine Sulfate) 1 mg Q4H PRN IVP pain scale 1-3 05/12/17 13:00 05/19/17 12:59 Morphine Sulfate (Morphine Sulfate) 2 mg Q4H PRN IVP pain scale 4-6 05/12/17 13:00 05/19/17 12:59 Morphine Sulfate (Morphine Sulfate) 4 mg Q4H PRN IVP pain score 7-10 05/12/17 13:00 05/19/17 12:59 05/13/17 07:00 Ondansetron HCl (Zofran) 4 mg Q6H PRN IVP Nausea & Vomiting 05/12/17 01:00 06/11/17 00:59 Piperacillin Sod/ Tazobactam Sod/ Dextrose (Zosyn/D5W) 110 ml @ 27.5 mls/hr Q8H IVPB 05/12/17 02:00 05/19/17 01:59 05/13/17 10:19 Polyethylene Glycol (Miralax) 17 gm DAILY PRN ORAL Constipation 05/12/17 09:00 06/11/17 08:59 Tamsulosin HCl (Flomax) 0.4 mg BEDTIME ORAL 05/13/17 21:00 06/12/17 20:59 Temazepam (Restoril) 15 mg HSPRN PRN ORAL Insomnia 05/12/17 09:00 05/19/17 08:59 Allergies: Coded Allergies: No Known Allergies (Unverified , 05/11/17) ROS Limited/Unobtainable: No Constitutional: Reports: no symptoms HEENT: Reports: no symptoms Cardiovascular: Reports: no symptoms Respiratory: Reports: no symptoms Gastrointestinal/Abdominal: Reports: abdominal pain Genitourinary: Reports: burning, pain Neurologic/Psychiatric: Reports: no symptoms Subjective 37 YO M admitted with acute appendicitis. S/P laparoscopic appendectomy . C/O Urinary retention. Cover for Int Med-Dr Whatley. Objective Last Vital Signs Date Time Temp Pulse Resp B/P Pulse Ox O2 Delivery O2 Flow Rate FiO2 05/13/17 11:46 99.5 59 20 117/75 98 Nasal Cannula 2.0 General Appearance: WD/WN, no apparent distress, alert EENT: PERRL/EOMI, normal ENT inspection Neck: non-tender, normal alignment, supple, normal inspection Cardiovascular: normal peripheral pulses, normal rate, regular rhythm, no gallop/murmur, no JVD Respiratory/Chest: chest wall non-tender, lungs clear, normal breath sounds, no respiratory distress, no accessory muscle use Abdomen: no organomegaly, no mass, absent bowel sounds, distended Extremities: normal range of motion, non-tender Neurologic: operating room technician II-XII grossly normal Skin: normal pigmentation, warm/dry Laboratory Tests Test 05/13/17 06:30 White Blood Count 6.6 K/UL (4.8-10.8) Red Blood Count 3.84 M/UL (4.70-6.10) L Hemoglobin 12.6 G/DL (14.2-18.0) L Hematocrit 37.7 % (42.0-52.0) L Mean Corpuscular Volume 98 FL (80-99) Mean Corpuscular Hemoglobin 32.9 PG (27.0-31.0) H Mean Corpuscular Hemoglobin Concent 33.6 G/DL (32.0-36.0) Red Cell Distribution Width 12.2 % (11.6-14.8) Platelet Count 146 K/UL (150-450) L Mean Platelet Volume 10.4 FL (6.5-10.1) H Neutrophils (%) (Auto) 71.6 % (45.0-75.0) Lymphocytes (%) (Auto) 19.3 % (20.0-45.0) L Monocytes (%) (Auto) 7.6 % (1.0-10.0) Eosinophils (%) (Auto) 0.8 % (0.0-3.0) Basophils (%) (Auto) 0.6 % (0.0-2.0) Prothrombin Time 10.7 SEC (9.30-11.50) Prothromb Time International Ratio 1.0 (0.9-1.1) Activated Partial Thromboplast Time 36 SEC (23-33) H Sodium Level 137 mEQ/L (135-145) Potassium Level 3.5 mEQ/L (3.4-4.9) Chloride Level 98 mEQ/L (98-107) Carbon Dioxide Level 27 mEQ/L (20-30) Anion Gap 12 (5-15) Blood Urea Nitrogen 6 mg/dL (7-23) L Creatinine 1.2 mg/dL (0.7-1.2) Estimat Glomerular Filtration Rate > 60 mL/min (>60) Glucose Level 113 mg/dL (74-106) H Calcium Level 8.7 mg/dL (8.6-10.2) Phosphorus Level 3.4 mg/dL (2.5-4.8) Magnesium Level 1.7 mg/dL (1.7-2.5) Total Bilirubin 1.7 mg/dL (0.0-1.2) H Direct Bilirubin 0.3 mg/dL (0.1-0.3) Aspartate Amino Transf (AST/SGOT) 18 U/L (5-40) Alanine Aminotransferase (ALT/SGPT) 8 U/L (3-41) Alkaline Phosphatase 43 U/L (40-129) Total Protein 6.4 g/dL (6.6-8.7) L Albumin 3.1 g/dL (3.5-5.2) L Globulin 3.3 g/dL Albumin/Globulin Ratio 0.9 (1.0-2.7) L Bad table Assessment/Plan Problem List: (1) Urinary retention Assessment & Plan: Start flomax. Cont soni cath for now. (2) Appendicitis with perforation Assessment & Plan: S/P laparoscopic appendectomy 05/12/17. ALESIA drain in place. Follow surgery recs. clear liquid diet (3) Abdominal pain (4) Post-op pain Assessment & Plan: Cont morphine. Status: not improved CAET PULIDO May 13, 2017 12:34
--- NOTE | 2017-05-13 12:39 | Infectious Diseases Prog Note ---
Assessment/Plan Assessment/Plan A Acute appendicitis with microperforation S/P laparoscopic appendectomy Urinary retention P: Continue Zosyn Subjective ROS Limited/Unobtainable: No Constitutional: Reports: other - poor appetite Gastrointestinal/Abdominal: Reports: bloating, other - mild pain Genitourinary: Reports: other - urinary retention Allergies: Coded Allergies: No Known Allergies (Unverified , 05/11/17) Objective Vital Signs Last 24 Hour Vital Signs Date Time Temp Pulse Resp B/P Pulse Ox O2 Delivery O2 Flow Rate FiO2 05/13/17 11:46 99.5 59 20 117/75 98 Nasal Cannula 2.0 05/13/17 09:10 76 22 98 05/13/17 08:03 98.2 64 20 116/68 98 Nasal Cannula 2.0 05/13/17 07:30 98.2 05/13/17 04:00 99.5 64 20 124/63 95 Nasal Cannula 3.0 05/13/17 00:00 99.5 70 18 127/66 96 Room Air 3.0 05/12/17 20:00 99.7 83 20 120/62 95 Room Air 05/12/17 16:00 98.1 77 20 129/61 100 Nasal Cannula 2.0 05/12/17 14:17 98.8 05/12/17 14:00 98.8 60 16 116/69 100 Nasal Cannula 3.0 05/12/17 13:47 77 16 111/66 100 Nasal Cannula 3.0 05/12/17 13:35 62 18 113/63 100 Nasal Cannula 3.0 05/12/17 13:20 60 17 114/67 100 Nasal Cannula 3.0 05/12/17 13:10 61 18 117/62 100 Nasal Cannula 3.0 05/12/17 13:04 76 20 99 05/12/17 13:02 61 16 115/66 100 Simple Mask 6.0 05/12/17 12:57 68 18 113/66 100 Simple Mask 6.0 05/12/17 12:52 99.1 78 21 107/55 100 Simple Mask 6.0 Height (Feet): 5 Height (Inches): 10.00 Weight (Pounds): 194 General Appearance: no acute distress HEENT: mucous membranes moist Respiratory/Chest: lungs clear Cardiovascular: normal rate Abdomen: soft, non tender, other - LLQ drain Genitourinary: normal external genitalia, other - Moore catheter Extremities: no edema Laboratory Tests Test 05/13/17 06:30 White Blood Count 6.6 K/UL (4.8-10.8) Red Blood Count 3.84 M/UL (4.70-6.10) L Hemoglobin 12.6 G/DL (14.2-18.0) L Hematocrit 37.7 % (42.0-52.0) L Mean Corpuscular Volume 98 FL (80-99) Mean Corpuscular Hemoglobin 32.9 PG (27.0-31.0) H Mean Corpuscular Hemoglobin Concent 33.6 G/DL (32.0-36.0) Red Cell Distribution Width 12.2 % (11.6-14.8) Platelet Count 146 K/UL (150-450) L Mean Platelet Volume 10.4 FL (6.5-10.1) H Neutrophils (%) (Auto) 71.6 % (45.0-75.0) Lymphocytes (%) (Auto) 19.3 % (20.0-45.0) L Monocytes (%) (Auto) 7.6 % (1.0-10.0) Eosinophils (%) (Auto) 0.8 % (0.0-3.0) Basophils (%) (Auto) 0.6 % (0.0-2.0) Prothrombin Time 10.7 SEC (9.30-11.50) Prothromb Time International Ratio 1.0 (0.9-1.1) Activated Partial Thromboplast Time 36 SEC (23-33) H Sodium Level 137 mEQ/L (135-145) Potassium Level 3.5 mEQ/L (3.4-4.9) Chloride Level 98 mEQ/L (98-107) Carbon Dioxide Level 27 mEQ/L (20-30) Anion Gap 12 (5-15) Blood Urea Nitrogen 6 mg/dL (7-23) L Creatinine 1.2 mg/dL (0.7-1.2) Estimat Glomerular Filtration Rate > 60 mL/min (>60) Glucose Level 113 mg/dL (74-106) H Calcium Level 8.7 mg/dL (8.6-10.2) Phosphorus Level 3.4 mg/dL (2.5-4.8) Magnesium Level 1.7 mg/dL (1.7-2.5) Total Bilirubin 1.7 mg/dL (0.0-1.2) H Direct Bilirubin 0.3 mg/dL (0.1-0.3) Aspartate Amino Transf (AST/SGOT) 18 U/L (5-40) Alanine Aminotransferase (ALT/SGPT) 8 U/L (3-41) Alkaline Phosphatase 43 U/L (40-129) Total Protein 6.4 g/dL (6.6-8.7) L Albumin 3.1 g/dL (3.5-5.2) L Globulin 3.3 g/dL Albumin/Globulin Ratio 0.9 (1.0-2.7) L Current Medications Medications (Trade) Dose Ordered Sig/Jonnie Route PRN Reason Start Time Stop Time Status Last Admin Dose Admin Acetaminophen (Tylenol) 650 mg Q4H PRN ORAL FEVER 05/12/17 09:00 06/11/17 08:59 Acetaminophen (Tylenol) 650 mg Q4H PRN ORAL Mild Pain (Pain Scale 1-3) 05/12/17 09:00 06/11/17 08:59 Acetaminophen (Tylenol) 650 mg Q4H PRN RECTAL Prn Headache/Temp > 100.5 05/12/17 09:45 06/11/17 09:44 Acetaminophen/ Hydrocodone Bitart ([place] 5/325) 1 tab Q6H PRN ORAL Moderate Pain (Pain Scale 4-6) 05/12/17 01:00 05/19/17 00:59 05/12/17 05:25 Bisacodyl (Dulcolax) 10 mg DAILYPRN PRN RECTAL Constipation 05/12/17 09:00 06/11/17 08:59 Dextrose/Sodium Chloride (D5 0.45% NS) 1,000 ml @ 75 mls/hr [id number] IV 05/13/17 10:30 06/12/17 10:29 05/13/17 10:20 Ketorolac Tromethamine 30 mg 30 mg Q6H PRN IM For Pain 05/12/17 13:00 05/17/17 12:59 Morphine Sulfate (Morphine Sulfate) 1 mg Q4H PRN IVP pain scale 1-3 05/12/17 13:00 05/19/17 12:59 Morphine Sulfate (Morphine Sulfate) 2 mg Q4H PRN IVP pain scale 4-6 05/12/17 13:00 05/19/17 12:59 Morphine Sulfate (Morphine Sulfate) 4 mg Q4H PRN IVP pain score 7-10 05/12/17 13:00 05/19/17 12:59 05/13/17 07:00 Ondansetron HCl (Zofran) 4 mg Q6H PRN IVP Nausea & Vomiting 05/12/17 01:00 06/11/17 00:59 Piperacillin Sod/ Tazobactam Sod/ Dextrose (Zosyn/D5W) 110 ml @ 27.5 mls/hr Q8H IVPB 05/12/17 02:00 05/19/17 01:59 05/13/17 10:19 Polyethylene Glycol (Miralax) 17 gm DAILY PRN ORAL Constipation 05/12/17 09:00 06/11/17 08:59 Tamsulosin HCl (Flomax) 0.4 mg BEDTIME ORAL 05/13/17 21:00 06/12/17 20:59 Temazepam (Restoril) 15 mg HSPRN PRN ORAL Insomnia 05/12/17 09:00 05/19/17 08:59 TOM CHAPMAN May 13, 2017 12:39
--- NOTE | 2017-05-13 13:49 | General Surgery Progress Note ---
General Surgery-Progress Note Subjective Symptoms: improved Objective Last 24 Hour Vital Signs Date Time Temp Pulse Resp B/P Pulse Ox O2 Delivery O2 Flow Rate FiO2 05/13/17 11:46 99.5 59 20 117/75 98 Nasal Cannula 2.0 05/13/17 09:10 76 22 98 05/13/17 08:03 98.2 64 20 116/68 98 Nasal Cannula 2.0 05/13/17 07:30 98.2 05/13/17 04:00 99.5 64 20 124/63 95 Nasal Cannula 3.0 05/13/17 00:00 99.5 70 18 127/66 96 Room Air 3.0 05/12/17 20:00 99.7 83 20 120/62 95 Room Air 05/12/17 16:00 98.1 77 20 129/61 100 Nasal Cannula 2.0 05/12/17 14:17 98.8 05/12/17 14:00 98.8 60 16 116/69 100 Nasal Cannula 3.0 05/12/17 13:47 77 16 111/66 100 Nasal Cannula 3.0 I&O Bad tableDressing: dry Wound: clean Drains: jason - 155 ml of sero-purulent fluid Cardiovascular: RSR Respiratory: clear Abdomen: distended Extremities: no edema Laboratory Tests Test 05/13/17 06:30 White Blood Count 6.6 K/UL (4.8-10.8) Red Blood Count 3.84 M/UL (4.70-6.10) L Hemoglobin 12.6 G/DL (14.2-18.0) L Hematocrit 37.7 % (42.0-52.0) L Mean Corpuscular Volume 98 FL (80-99) Mean Corpuscular Hemoglobin 32.9 PG (27.0-31.0) H Mean Corpuscular Hemoglobin Concent 33.6 G/DL (32.0-36.0) Red Cell Distribution Width 12.2 % (11.6-14.8) Platelet Count 146 K/UL (150-450) L Mean Platelet Volume 10.4 FL (6.5-10.1) H Neutrophils (%) (Auto) 71.6 % (45.0-75.0) Lymphocytes (%) (Auto) 19.3 % (20.0-45.0) L Monocytes (%) (Auto) 7.6 % (1.0-10.0) Eosinophils (%) (Auto) 0.8 % (0.0-3.0) Basophils (%) (Auto) 0.6 % (0.0-2.0) Prothrombin Time 10.7 SEC (9.30-11.50) Prothromb Time International Ratio 1.0 (0.9-1.1) Activated Partial Thromboplast Time 36 SEC (23-33) H Sodium Level 137 mEQ/L (135-145) Potassium Level 3.5 mEQ/L (3.4-4.9) Chloride Level 98 mEQ/L (98-107) Carbon Dioxide Level 27 mEQ/L (20-30) Anion Gap 12 (5-15) Blood Urea Nitrogen 6 mg/dL (7-23) L Creatinine 1.2 mg/dL (0.7-1.2) Estimat Glomerular Filtration Rate > 60 mL/min (>60) Glucose Level 113 mg/dL (74-106) H Calcium Level 8.7 mg/dL (8.6-10.2) Phosphorus Level 3.4 mg/dL (2.5-4.8) Magnesium Level 1.7 mg/dL (1.7-2.5) Total Bilirubin 1.7 mg/dL (0.0-1.2) H Direct Bilirubin 0.3 mg/dL (0.1-0.3) Aspartate Amino Transf (AST/SGOT) 18 U/L (5-40) Alanine Aminotransferase (ALT/SGPT) 8 U/L (3-41) Alkaline Phosphatase 43 U/L (40-129) Total Protein 6.4 g/dL (6.6-8.7) L Albumin 3.1 g/dL (3.5-5.2) L Globulin 3.3 g/dL Albumin/Globulin Ratio 0.9 (1.0-2.7) L Assessment Post-op Diagnosis perforated appendicitis with early pelvic abscess and small bowel induration Additional Comments Pt has some element of an ileus, had urinary retention requiring placement of a Moore Plan Additional Comments Will continue IV fluids and parenteral antibiotics, we will keep Moore catheter in place Maurice Loaiza MD May 13, 2017 13:49
[2017-05-13 16:01] VITALS: BP 134/63
[2017-05-13] MEDS: Simethicone 80mg tab ORAL PRN (18:59)
[2017-05-13 20:00] VITALS: BP 141/71
[2017-05-13] MEDS: Tamsulosin 0.4mg cap ORAL SCH (20:51)
[2017-05-14] VITALS: BP 115/72
[2017-05-14] MEDS: Piperacillin/Tazobactam 3.375 GM in D5W 110 ML IVPB SCH ×3 (02:22→18:54)
[2017-05-14] MEDS: Simethicone 80mg tab ORAL PRN ×2 (03:12→14:39)
[2017-05-14 04:00] VITALS: BP 121/71
[2017-05-14 07:14] LABS: BASOPHILS % (AUTO) 1.3 % (0.0-2.0); EOSINOPHILS % (AUTO) 0.7 % (0.0-3.0); LYMPHOCYTES % (AUTO) 21.3 % (20.0-45.0); MEAN CORPUSCULAR HEMOGLOBIN 33.1 PG (27.0-31.0); MEAN CORPUSCULAR VOLUME 97 FL (80-99); MEAN PLATELET VOLUME 9.7 FL (6.5-10.1); MONOCYTES % (AUTO) 9.2 % (1.0-10.0); NEUTROPHILS % (AUTO) 67.4 % (45.0-75.0); PLATELET COUNT 158 K/UL (150-450); RED BLOOD COUNT 4.06 M/UL (4.70-6.10); RED CELL DISTRIBUTION WIDTH 12.1 % (11.6-14.8); WHITE BLOOD COUNT 5.7 K/UL (4.8-10.8)
[2017-05-14 07:30] LABS: ANION GAP 12 (5-15); CALCIUM 8.8 mg/dL (8.6-10.2); CARBON DIOXIDE 29 mEQ/L (20-30); CHLORIDE 95 mEQ/L (98-107); CREATININE 1.2 mg/dL (0.7-1.2); GLOMERULAR FILTRATION RATE > 60 mL/min (>60); HEMOLYSIS 9; POTASSIUM 3.6 mEQ/L (3.4-4.9); SODIUM 136 mEQ/L (135-145)
[2017-05-14 08:15] VITALS: BP 125/63
--- NOTE | 2017-05-14 09:24 | Internal Med Progress Note ---
Subjective Date of Service: May 14, 2017 Physician Name Pulido,Cate Attending Physician Misael Whatley MD Current Medications Medications (Trade) Dose Ordered Sig/Jonnie Route PRN Reason Start Time Stop Time Status Last Admin Dose Admin Acetaminophen (Tylenol) 650 mg Q4H PRN ORAL FEVER 05/12/17 09:00 06/11/17 08:59 Acetaminophen (Tylenol) 650 mg Q4H PRN ORAL Mild Pain (Pain Scale 1-3) 05/12/17 09:00 06/11/17 08:59 Acetaminophen (Tylenol) 650 mg Q4H PRN RECTAL Prn Headache/Temp > 100.5 05/12/17 09:45 06/11/17 09:44 Acetaminophen/ Hydrocodone Bitart ([place] 5/325) 1 tab Q6H PRN ORAL Moderate Pain (Pain Scale 4-6) 05/12/17 01:00 05/19/17 00:59 05/12/17 05:25 Al Hydroxide/Mg Hydroxide (Mylanta) 30 ml EVERY 4 HOURS PRN ORAL Abdominal cramps 05/13/17 18:30 06/12/17 18:29 05/14/17 08:25 Bisacodyl (Dulcolax) 10 mg DAILYPRN PRN RECTAL Constipation 05/12/17 09:00 06/11/17 08:59 Ketorolac Tromethamine (Toradol 30mg) 30 mg Q6H PRN IM For Pain 05/12/17 13:00 05/17/17 12:59 Morphine Sulfate (Morphine Sulfate) 1 mg Q4H PRN IVP pain scale 1-3 05/12/17 13:00 05/19/17 12:59 Morphine Sulfate (Morphine Sulfate) 2 mg Q4H PRN IVP pain scale 4-6 05/12/17 13:00 05/19/17 12:59 05/14/17 00:10 Morphine Sulfate (Morphine Sulfate) 4 mg Q4H PRN IVP pain score 7-10 05/12/17 13:00 05/19/17 12:59 05/13/17 12:36 Ondansetron HCl (Zofran) 4 mg Q6H PRN IVP Nausea & Vomiting 05/12/17 01:00 06/11/17 00:59 05/13/17 18:34 Pantoprazole (Protonix) 40 mg DAILY ORAL 05/13/17 18:30 06/12/17 18:29 05/14/17 08:24 Piperacillin Sod/ Tazobactam Sod/ Dextrose (Zosyn/D5W) 110 ml @ 27.5 mls/hr Q8H IVPB 05/12/17 02:00 05/19/17 01:59 05/14/17 02:22 Polyethylene Glycol (Miralax) 17 gm DAILY PRN ORAL Constipation 05/12/17 09:00 06/11/17 08:59 Simethicone (Mylicon) 80 mg TID PRN ORAL Abdominal cramps 05/13/17 18:30 06/12/17 18:29 05/14/17 03:12 Tamsulosin HCl (Flomax) 0.4 mg BEDTIME ORAL 05/13/17 21:00 06/12/17 20:59 05/13/17 20:51 Temazepam (Restoril) 15 mg HSPRN PRN ORAL Insomnia 05/12/17 09:00 05/19/17 08:59 Allergies: Coded Allergies: No Known Allergies (Unverified , 05/11/17) ROS Limited/Unobtainable: No Constitutional: Reports: no symptoms HEENT: Reports: no symptoms Cardiovascular: Reports: no symptoms Respiratory: Reports: no symptoms Gastrointestinal/Abdominal: Reports: abdomen distended, abdominal pain Genitourinary: Reports: other - retention Neurologic/Psychiatric: Reports: no symptoms Subjective 37 YO M admitted with acute appendicitis. S/P laparoscopic appendectomy . C/O Urinary retention. Cover for Int Med-Dr Whatley. Objective Last Vital Signs Date Time Temp Pulse Resp B/P Pulse Ox O2 Delivery O2 Flow Rate FiO2 05/14/17 08:15 98.1 79 21 125/63 97 Room Air 05/13/17 16:01 2.0 Laboratory Tests Test 05/14/17 06:35 White Blood Count 5.7 K/UL (4.8-10.8) Red Blood Count 4.06 M/UL (4.70-6.10) L Hemoglobin 13.4 G/DL (14.2-18.0) L Hematocrit 39.5 % (42.0-52.0) L Mean Corpuscular Volume 97 FL (80-99) Mean Corpuscular Hemoglobin 33.1 PG (27.0-31.0) H Mean Corpuscular Hemoglobin Concent 34.0 G/DL (32.0-36.0) Red Cell Distribution Width 12.1 % (11.6-14.8) Platelet Count 158 K/UL (150-450) Mean Platelet Volume 9.7 FL (6.5-10.1) Neutrophils (%) (Auto) 67.4 % (45.0-75.0) Lymphocytes (%) (Auto) 21.3 % (20.0-45.0) Monocytes (%) (Auto) 9.2 % (1.0-10.0) Eosinophils (%) (Auto) 0.7 % (0.0-3.0) Basophils (%) (Auto) 1.3 % (0.0-2.0) Sodium Level 136 mEQ/L (135-145) Potassium Level 3.6 mEQ/L (3.4-4.9) Chloride Level 95 mEQ/L (98-107) L Carbon Dioxide Level 29 mEQ/L (20-30) Anion Gap 12 (5-15) Blood Urea Nitrogen 6 mg/dL (7-23) L Creatinine 1.2 mg/dL (0.7-1.2) Estimat Glomerular Filtration Rate > 60 mL/min (>60) Glucose Level 102 mg/dL (74-106) Calcium Level 8.8 mg/dL (8.6-10.2) Intake and Output 05/13/17 05/14/17 19:00 07:00 Intake Total 620 ml 590.0 ml Output Total 1130 ml 540 ml Balance -510 ml 50.0 ml Intake Oral 620 ml 480 ml IV Total 110.0 ml Output Urine Total 1000 ml 400 ml Drainage Total 130 ml 140 ml Objective General Appearance: WD/WN, no apparent distress, alert EENT: PERRL/EOMI, normal ENT inspection Neck: non-tender, normal alignment, supple, normal inspection Cardiovascular: normal peripheral pulses, normal rate, regular rhythm, no gallop/murmur, no JVD Respiratory/Chest: chest wall non-tender, lungs clear, normal breath sounds, no respiratory distress, no accessory muscle use Abdomen: no organomegaly, no mass, absent bowel sounds, tender to palpitation; distended. Dressing clean and dry. ALESIA drain in place-serosanguineous drainage. 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 Cont soni cath for now. (2) Appendicitis with perforation Assessment & Plan: S/P laparoscopic appendectomy 05/12/17. ALESIA drain in place. Follow surgery recs. Advance diet as tolerated per surgery recs. (3) Abdominal pain (4) Post-op pain Assessment & Plan: Cont morphine. Status: progressing CATE PULIDO May 14, 2017 09:24
--- NOTE | 2017-05-14 11:52 | General Progress Note ---
Progress Note Progress Note Surgery: pt seen and examined at bedside. no acute events. low grade fever 99.5. mild abd pain. no n/v/f/c. minimal appetite. tolerating clears. no BM yet. drain with serous output abdominal exam benign. incisions c/d/i -full liquid diet. okay to advance as tolerated -cont iv abx -d/c soni -ambulate and oob -will need a few more days of iv abx prior to d/c. -will likely d/c drain tomorrow. Timothy Pacheco May 14, 2017 11:52
[2017-05-14] MEDS: Miralax 17gm pkt ORAL PRN (13:16)
--- NOTE | 2017-05-14 14:46 | Pulmonology Progress Note ---
Assessment/Plan Problems: (1) Appendicitis with perforation (2) Post-op pain Assessment/Plan continue Zosy advance diet check electrolytes f/u by Surgery dvt prophylaxis ambulate Moore discontinued. Subjective ROS Limited/Unobtainable: No Constitutional: Reports: no symptoms HEENT: Repors: no symptoms Respiratory: Reports: no symptoms Cardiovascular: Reports: no symptoms Allergies: Coded Allergies: No Known Allergies (Unverified , 05/11/17) Objective Last 24 Hour Vital Signs Date Time Temp Pulse Resp B/P Pulse Ox O2 Delivery O2 Flow Rate FiO2 05/14/17 08:15 98.1 79 21 125/63 97 Room Air 05/14/17 04:00 98.1 78 20 121/71 94 Room Air 05/14/17 00:00 98.4 69 20 115/72 94 Nasal Cannula 05/13/17 20:00 99.5 92 20 141/71 94 Room Air 05/13/17 16:01 98.4 70 20 134/63 99 Nasal Cannula 2.0 Intake and Output 05/13/17 05/14/17 19:00 07:00 Intake Total 620 ml 590.0 ml Output Total 1130 ml 540 ml Balance -510 ml 50.0 ml Intake Oral 620 ml 480 ml IV Total 110.0 ml Output Urine Total 1000 ml 400 ml Drainage Total 130 ml 140 ml Objective drain with serous output General Appearance: WD/WN, no acute distress Laboratory Tests 05/14/17 06:35: White Blood Count 5.7, Red Blood Count 4.06L, Hemoglobin 13.4L, Hematocrit 39.5L , Mean Corpuscular Volume 97, Mean Corpuscular Hemoglobin 33.1H, Mean Corpuscular Hemoglobin Concent 34.0, Red Cell Distribution Width 12.1, Platelet Count 158, Mean Platelet Volume 9.7, Neutrophils (%) (Auto) 67.4, Lymphocytes (% ) (Auto) 21.3, Monocytes (%) (Auto) 9.2, Eosinophils (%) (Auto) 0.7, Basophils ( %) (Auto) 1.3, Sodium Level 136, Potassium Level 3.6, Chloride Level 95L, Carbon Dioxide Level 29, Anion Gap 12, Blood Urea Nitrogen 6L, Creatinine 1.2, Estimat Glomerular Filtration Rate > 60, Glucose Level 102, Calcium Level 8.8 Current Medications Medications (Trade) Dose Ordered Sig/Jonnie Route PRN Reason Start Time Stop Time Status Last Admin Dose Admin Acetaminophen (Tylenol) 650 mg Q4H PRN ORAL FEVER 05/12/17 09:00 06/11/17 08:59 Acetaminophen (Tylenol) 650 mg Q4H PRN ORAL Mild Pain (Pain Scale 1-3) 05/12/17 09:00 06/11/17 08:59 Acetaminophen (Tylenol) 650 mg Q4H PRN RECTAL Prn Headache/Temp > 100.5 05/12/17 09:45 06/11/17 09:44 Acetaminophen/ Hydrocodone Bitart ([place] 5/325) 1 tab Q6H PRN ORAL Moderate Pain (Pain Scale 4-6) 05/12/17 01:00 05/19/17 00:59 05/12/17 05:25 Al Hydroxide/Mg Hydroxide (Mylanta) 30 ml EVERY 4 HOURS PRN ORAL Abdominal cramps 05/13/17 18:30 06/12/17 18:29 05/14/17 08:25 Bisacodyl (Dulcolax) 10 mg DAILYPRN PRN RECTAL Constipation 05/12/17 09:00 06/11/17 08:59 05/14/17 14:27 Ketorolac Tromethamine (Toradol 30mg) 30 mg Q6H PRN IM For Pain 05/12/17 13:00 05/17/17 12:59 05/14/17 14:40 Morphine Sulfate (Morphine Sulfate) 1 mg Q4H PRN IVP pain scale 1-3 05/12/17 13:00 05/19/17 12:59 Morphine Sulfate (Morphine Sulfate) 2 mg Q4H PRN IVP pain scale 4-6 05/12/17 13:00 05/19/17 12:59 05/14/17 00:10 Morphine Sulfate (Morphine Sulfate) 4 mg Q4H PRN IVP pain score 7-10 05/12/17 13:00 05/19/17 12:59 05/13/17 12:36 Ondansetron HCl (Zofran) 4 mg Q6H PRN IVP Nausea & Vomiting 05/12/17 01:00 06/11/17 00:59 05/13/17 18:34 Pantoprazole (Protonix) 40 mg DAILY ORAL 05/13/17 18:30 06/12/17 18:29 05/14/17 08:24 Piperacillin Sod/ Tazobactam Sod/ Dextrose (Zosyn/D5W) 110 ml @ 27.5 mls/hr Q8H IVPB 05/12/17 02:00 05/19/17 01:59 05/14/17 09:39 Polyethylene Glycol (Miralax) 17 gm DAILY PRN ORAL Constipation 05/12/17 09:00 06/11/17 08:59 05/14/17 13:16 Simethicone (Mylicon) 80 mg TID PRN ORAL Abdominal cramps 05/13/17 18:30 06/12/17 18:29 05/14/17 14:39 Tamsulosin HCl (Flomax) 0.4 mg BEDTIME ORAL 05/13/17 21:00 06/12/17 20:59 05/13/17 20:51 Temazepam (Restoril) 15 mg HSPRN PRN ORAL Insomnia 05/12/17 09:00 05/19/17 08:59 MAHESH MCLEAN May 14, 2017 14:46
[2017-05-14 16:10] VITALS: BP 131/82
[2017-05-14] MEDS ORDERED: Fleet's Mineral Oil Enema RECTAL ONE (17:00)
[2017-05-14 20:00] VITALS: BP 132/67
--- NOTE | 2017-05-14 20:31 | Infectious Diseases Prog Note ---
Assessment/Plan Assessment/Plan ASSESSMENT: The patient is a 37-year-old male with possible perforated appendicitis SP surgery Leukocytosis, SP PLAN: continue the patient on Zosyn d# 3 / 7 , upon DC will change to Cipro and Flagyl Monitor CBC. Monitor BMP Subjective Constitutional: Denies: anorexia, chills, drenching sweats, fatigue, fever, no symptoms, other Allergies: Coded Allergies: No Known Allergies (Unverified , 05/11/17) Objective Vital Signs Last 24 Hour Vital Signs Date Time Temp Pulse Resp B/P Pulse Ox O2 Delivery O2 Flow Rate FiO2 05/14/17 16:10 98.2 92 24 131/82 99 Room Air 05/14/17 15:10 98.2 05/14/17 08:15 98.1 79 21 125/63 97 Room Air 05/14/17 04:00 98.1 78 20 121/71 94 Room Air 05/14/17 00:00 98.4 69 20 115/72 94 Nasal Cannula Height (Feet): 5 Height (Inches): 10.00 Weight (Pounds): 194 HEENT: anicteric Respiratory/Chest: normal breath sounds Cardiovascular: regularly irregular Abdomen: non distended Laboratory Tests Test 05/14/17 06:35 White Blood Count 5.7 K/UL (4.8-10.8) Red Blood Count 4.06 M/UL (4.70-6.10) L Hemoglobin 13.4 G/DL (14.2-18.0) L Hematocrit 39.5 % (42.0-52.0) L Mean Corpuscular Volume 97 FL (80-99) Mean Corpuscular Hemoglobin 33.1 PG (27.0-31.0) H Mean Corpuscular Hemoglobin Concent 34.0 G/DL (32.0-36.0) Red Cell Distribution Width 12.1 % (11.6-14.8) Platelet Count 158 K/UL (150-450) Mean Platelet Volume 9.7 FL (6.5-10.1) Neutrophils (%) (Auto) 67.4 % (45.0-75.0) Lymphocytes (%) (Auto) 21.3 % (20.0-45.0) Monocytes (%) (Auto) 9.2 % (1.0-10.0) Eosinophils (%) (Auto) 0.7 % (0.0-3.0) Basophils (%) (Auto) 1.3 % (0.0-2.0) Sodium Level 136 mEQ/L (135-145) Potassium Level 3.6 mEQ/L (3.4-4.9) Chloride Level 95 mEQ/L (98-107) L Carbon Dioxide Level 29 mEQ/L (20-30) Anion Gap 12 (5-15) Blood Urea Nitrogen 6 mg/dL (7-23) L Creatinine 1.2 mg/dL (0.7-1.2) Estimat Glomerular Filtration Rate > 60 mL/min (>60) Glucose Level 102 mg/dL (74-106) Calcium Level 8.8 mg/dL (8.6-10.2) Current Medications Medications (Trade) Dose Ordered Sig/Jonnie Route PRN Reason Start Time Stop Time Status Last Admin Dose Admin Acetaminophen (Tylenol) 650 mg Q4H PRN ORAL FEVER 05/12/17 09:00 06/11/17 08:59 Acetaminophen (Tylenol) 650 mg Q4H PRN ORAL Mild Pain (Pain Scale 1-3) 05/12/17 09:00 06/11/17 08:59 Acetaminophen (Tylenol) 650 mg Q4H PRN RECTAL Prn Headache/Temp > 100.5 05/12/17 09:45 06/11/17 09:44 Acetaminophen/ Hydrocodone Bitart ([place] 5/325) 1 tab Q6H PRN ORAL Moderate Pain (Pain Scale 4-6) 05/12/17 01:00 05/19/17 00:59 05/12/17 05:25 Al Hydroxide/Mg Hydroxide (Mylanta) 30 ml EVERY 4 HOURS PRN ORAL Abdominal cramps 05/13/17 18:30 06/12/17 18:29 05/14/17 08:25 Bisacodyl (Dulcolax) 10 mg DAILYPRN PRN RECTAL Constipation 05/12/17 09:00 06/11/17 08:59 05/14/17 14:27 Ketorolac Tromethamine (Toradol 30mg) 30 mg Q6H PRN IM For Pain 05/12/17 13:00 05/17/17 12:59 05/14/17 14:40 Morphine Sulfate (Morphine Sulfate) 1 mg Q4H PRN IVP pain scale 1-3 05/12/17 13:00 05/19/17 12:59 Morphine Sulfate (Morphine Sulfate) 2 mg Q4H PRN IVP pain scale 4-6 05/12/17 13:00 05/19/17 12:59 05/14/17 00:10 Morphine Sulfate (Morphine Sulfate) 4 mg Q4H PRN IVP pain score 7-10 05/12/17 13:00 05/19/17 12:59 05/13/17 12:36 Ondansetron HCl (Zofran) 4 mg Q6H PRN IVP Nausea & Vomiting 05/12/17 01:00 06/11/17 00:59 05/13/17 18:34 Pantoprazole (Protonix) 40 mg DAILY ORAL 05/13/17 18:30 06/12/17 18:29 05/14/17 08:24 Piperacillin Sod/ Tazobactam Sod/ Dextrose (Zosyn/D5W) 110 ml @ 27.5 mls/hr Q8H IVPB 05/12/17 02:00 05/19/17 01:59 05/14/17 18:54 Polyethylene Glycol (Miralax) 17 gm DAILY PRN ORAL Constipation 05/12/17 09:00 06/11/17 08:59 05/14/17 13:16 Simethicone (Mylicon) 80 mg TID PRN ORAL Abdominal cramps 05/13/17 18:30 06/12/17 18:29 05/14/17 14:39 Tamsulosin HCl (Flomax) 0.4 mg BEDTIME ORAL 05/13/17 21:00 06/12/17 20:59 05/13/17 20:51 Temazepam (Restoril) 15 mg HSPRN PRN ORAL Insomnia 05/12/17 09:00 05/19/17 08:59 SUSAN NICHOLS M.D. May 14, 2017 20:30
[2017-05-14] MEDS: Tamsulosin 0.4mg cap ORAL SCH (21:08)
[2017-05-15] VITALS (8 sets, daily range): BP systolic 103–140; BP diastolic 59–85
[2017-05-15] MEDS: Piperacillin/Tazobactam 3.375 GM in D5W 110 ML IVPB SCH ×3 (01:36→19:14)
[2017-05-15 06:33] LABS: BASOPHILS % (AUTO) 1.2 % (0.0-2.0); EOSINOPHILS % (AUTO) 1.8 % (0.0-3.0); LYMPHOCYTES % (AUTO) 24.6 % (20.0-45.0); MEAN CORPUSCULAR HEMOGLOBIN 32.6 PG (27.0-31.0); MEAN CORPUSCULAR HGB CONC 33.6 G/DL (32.0-36.0); MEAN CORPUSCULAR VOLUME 97 FL (80-99); MEAN PLATELET VOLUME 8.7 FL (6.5-10.1); MONOCYTES % (AUTO) 10.2 % (1.0-10.0); NEUTROPHILS % (AUTO) 62.2 % (45.0-75.0); PLATELET COUNT 176 K/UL (150-450); RED BLOOD COUNT 3.74 M/UL (4.70-6.10); RED CELL DISTRIBUTION WIDTH 12.2 % (11.6-14.8); WHITE BLOOD COUNT 5.1 K/UL (4.8-10.8)
[2017-05-15] MEDS: Norco 5mg/325mg tab ORAL PRN ×2 (06:50→15:22)
[2017-05-15 06:57] LABS: ANION GAP 9 (5-15); CALCIUM 8.9 mg/dL (8.6-10.2); CARBON DIOXIDE 29 mEQ/L (20-30); CHLORIDE 97 mEQ/L (98-107); CREATININE 1.3 mg/dL (0.7-1.2); GLOMERULAR FILTRATION RATE > 60 mL/min (>60); HEMOLYSIS 13; POTASSIUM 3.6 mEQ/L (3.4-4.9); SODIUM 135 mEQ/L (135-145)
--- NOTE | 2017-05-15 10:26 | Pulmonology Progress Note ---
Assessment/Plan Problems: (1) Appendicitis with perforation (2) Post-op pain Assessment/Plan continue Zosy advance diet check electrolytes f/u by Surgery dvt prophylaxis ambulate Moore discontinued. had a BM after a suppository Subjective ROS Limited/Unobtainable: No Constitutional: Reports: no symptoms HEENT: Repors: no symptoms Respiratory: Reports: no symptoms Allergies: Coded Allergies: No Known Allergies (Unverified , 05/11/17) Objective Last 24 Hour Vital Signs Date Time Temp Pulse Resp B/P Pulse Ox O2 Delivery O2 Flow Rate FiO2 05/15/17 08:43 97.9 72 15 112/73 98 Room Air 05/15/17 07:49 97.9 05/15/17 04:00 98.1 78 20 124/68 95 Room Air 05/15/17 00:00 97.9 78 20 116/63 94 Room Air 05/14/17 20:00 98.2 62 20 132/67 95 Room Air 05/14/17 16:10 98.2 92 24 131/82 99 Room Air 05/14/17 15:10 98.2 Intake and Output 05/14/17 05/15/17 19:00 07:00 Intake Total 590.0 ml 220.0 ml Output Total 730 ml 360 ml Balance -140.0 ml -140.0 ml Intake Oral 480 ml IV Total 110.0 ml 220.0 ml Output Urine Total 600 ml 320 ml Drainage Total 130 ml 40 ml # Bowel Movements 1 1 Objective drain with serous output General Appearance: WD/WN HEENT: normocephalic, atraumatic Respiratory/Chest: chest wall non-tender, lungs clear Cardiovascular: normal peripheral pulses, normal rate Abdomen: normal bowel sounds, soft, non tender, no scars Extremities: no cyanosis Skin: no lesions Laboratory Tests 05/15/17 06:00: White Blood Count 5.1, Red Blood Count 3.74L, Hemoglobin 12.2L, Hematocrit 36.3L , Mean Corpuscular Volume 97, Mean Corpuscular Hemoglobin 32.6H, Mean Corpuscular Hemoglobin Concent 33.6, Red Cell Distribution Width 12.2, Platelet Count 176, Mean Platelet Volume 8.7, Neutrophils (%) (Auto) 62.2, Lymphocytes (% ) (Auto) 24.6, Monocytes (%) (Auto) 10.2H, Eosinophils (%) (Auto) 1.8, Basophils (%) (Auto) 1.2, Sodium Level 135, Potassium Level 3.6, Chloride Level 97L, Carbon Dioxide Level 29, Anion Gap 9, Blood Urea Nitrogen 10, Creatinine 1.3H, Estimat Glomerular Filtration Rate > 60, Glucose Level 103, Calcium Level 8.9 Current Medications Medications (Trade) Dose Ordered Sig/Jonnie Route PRN Reason Start Time Stop Time Status Last Admin Dose Admin Acetaminophen (Tylenol) 650 mg Q4H PRN ORAL FEVER 05/12/17 09:00 06/11/17 08:59 Acetaminophen (Tylenol) 650 mg Q4H PRN ORAL Mild Pain (Pain Scale 1-3) 05/12/17 09:00 06/11/17 08:59 Acetaminophen (Tylenol) 650 mg Q4H PRN RECTAL Prn Headache/Temp > 100.5 05/12/17 09:45 06/11/17 09:44 Acetaminophen/ Hydrocodone Bitart ([place] 5/325) 1 tab Q6H PRN ORAL Moderate Pain (Pain Scale 4-6) 05/12/17 01:00 05/19/17 00:59 05/15/17 06:50 Al Hydroxide/Mg Hydroxide (Mylanta) 30 ml EVERY 4 HOURS PRN ORAL Abdominal cramps 05/13/17 18:30 06/12/17 18:29 05/14/17 08:25 Bisacodyl (Dulcolax) 10 mg DAILYPRN PRN RECTAL Constipation 05/12/17 09:00 06/11/17 08:59 05/14/17 14:27 Ketorolac Tromethamine (Toradol 30mg) 30 mg Q6H PRN IM For Pain 05/12/17 13:00 05/17/17 12:59 05/14/17 14:40 Morphine Sulfate (Morphine Sulfate) 1 mg Q4H PRN IVP pain scale 1-3 05/12/17 13:00 05/19/17 12:59 Morphine Sulfate (Morphine Sulfate) 2 mg Q4H PRN IVP pain scale 4-6 05/12/17 13:00 05/19/17 12:59 05/14/17 00:10 Morphine Sulfate (Morphine Sulfate) 4 mg Q4H PRN IVP pain score 7-10 05/12/17 13:00 05/19/17 12:59 05/13/17 12:36 Ondansetron HCl (Zofran) 4 mg Q6H PRN IVP Nausea & Vomiting 05/12/17 01:00 06/11/17 00:59 05/13/17 18:34 Pantoprazole (Protonix) 40 mg DAILY ORAL 05/13/17 18:30 06/12/17 18:29 05/15/17 09:59 Piperacillin Sod/ Tazobactam Sod/ Dextrose (Zosyn/D5W) 110 ml @ 27.5 mls/hr Q8H IVPB 05/12/17 02:00 05/19/17 01:59 05/15/17 09:59 Polyethylene Glycol (Miralax) 17 gm DAILY PRN ORAL Constipation 05/12/17 09:00 06/11/17 08:59 05/14/17 13:16 Simethicone (Mylicon) 80 mg TID PRN ORAL Abdominal cramps 05/13/17 18:30 06/12/17 18:29 05/14/17 14:39 Tamsulosin HCl (Flomax) 0.4 mg BEDTIME ORAL 05/13/17 21:00 06/12/17 20:59 05/14/17 21:08 Temazepam (Restoril) 15 mg HSPRN PRN ORAL Insomnia 05/12/17 09:00 05/19/17 08:59 MAHESH MCLEAN May 15, 2017 10:26
--- NOTE | 2017-05-15 10:58 | General Surgery Progress Note ---
General Surgery-Progress Note Subjective Symptoms: improved Objective Last 24 Hour Vital Signs Date Time Temp Pulse Resp B/P Pulse Ox O2 Delivery O2 Flow Rate FiO2 05/15/17 08:43 97.9 72 15 112/73 98 Room Air 05/15/17 07:49 97.9 05/15/17 04:00 98.1 78 20 124/68 95 Room Air 05/15/17 00:00 97.9 78 20 116/63 94 Room Air 05/14/17 20:00 98.2 62 20 132/67 95 Room Air 05/14/17 16:10 98.2 92 24 131/82 99 Room Air 05/14/17 15:10 98.2 I&O Intake and Output 05/14/17 05/15/17 19:00 07:00 Intake Total 590.0 ml 220.0 ml Output Total 730 ml 360 ml Balance -140.0 ml -140.0 ml Intake Oral 480 ml IV Total 110.0 ml 220.0 ml Output Urine Total 600 ml 320 ml Drainage Total 130 ml 40 ml # Bowel Movements 1 1 Dressing: dry Wound: clean Drains: jason - 170 ml of serous fluid Cardiovascular: RSR Respiratory: clear Abdomen: soft Extremities: no edema Laboratory Tests Test 05/15/17 06:00 White Blood Count 5.1 K/UL (4.8-10.8) Red Blood Count 3.74 M/UL (4.70-6.10) L Hemoglobin 12.2 G/DL (14.2-18.0) L Hematocrit 36.3 % (42.0-52.0) L Mean Corpuscular Volume 97 FL (80-99) Mean Corpuscular Hemoglobin 32.6 PG (27.0-31.0) H Mean Corpuscular Hemoglobin Concent 33.6 G/DL (32.0-36.0) Red Cell Distribution Width 12.2 % (11.6-14.8) Platelet Count 176 K/UL (150-450) Mean Platelet Volume 8.7 FL (6.5-10.1) Neutrophils (%) (Auto) 62.2 % (45.0-75.0) Lymphocytes (%) (Auto) 24.6 % (20.0-45.0) Monocytes (%) (Auto) 10.2 % (1.0-10.0) H Eosinophils (%) (Auto) 1.8 % (0.0-3.0) Basophils (%) (Auto) 1.2 % (0.0-2.0) Sodium Level 135 mEQ/L (135-145) Potassium Level 3.6 mEQ/L (3.4-4.9) Chloride Level 97 mEQ/L (98-107) L Carbon Dioxide Level 29 mEQ/L (20-30) Anion Gap 9 (5-15) Blood Urea Nitrogen 10 mg/dL (7-23) Creatinine 1.3 mg/dL (0.7-1.2) H Estimat Glomerular Filtration Rate > 60 mL/min (>60) Glucose Level 103 mg/dL (74-106) Calcium Level 8.9 mg/dL (8.6-10.2) Assessment Post-op Diagnosis perforated appendicitis with early pelvic abscess and small bowel induration Additional Comments Pt is improving, tolerating full liquids, he was able to void without the Moore , had a BM last night Plan Additional Comments Will convert IV to heparin lock, will advance to soft diet. Maurice Loaiza MD May 15, 2017 10:58
--- NOTE | 2017-05-15 11:17 | Infectious Diseases Prog Note ---
Assessment/Plan Assessment/Plan ASSESSMENT: The patient is a 37-year-old male with perforated appendicitis with early pelvic abscess SP surgery Leukocytosis, SP PLAN: continue the patient on Zosyn d# 4 / 7 , upon DC will change to Cipro and Flagyl Monitor CBC. Monitor BMP Subjective Constitutional: Denies: anorexia, chills, drenching sweats, fatigue, fever, no symptoms, other Allergies: Coded Allergies: No Known Allergies (Unverified , 05/11/17) Objective Vital Signs Last 24 Hour Vital Signs Date Time Temp Pulse Resp B/P Pulse Ox O2 Delivery O2 Flow Rate FiO2 05/15/17 08:43 97.9 72 15 112/73 98 Room Air 05/15/17 07:49 97.9 05/15/17 04:00 98.1 78 20 124/68 95 Room Air 05/15/17 00:00 97.9 78 20 116/63 94 Room Air 05/14/17 20:00 98.2 62 20 132/67 95 Room Air 05/14/17 16:10 98.2 92 24 131/82 99 Room Air 05/14/17 15:10 98.2 Height (Feet): 5 Height (Inches): 10.00 Weight (Pounds): 194 HEENT: atraumatic Respiratory/Chest: normal breath sounds Cardiovascular: regular rhythm Abdomen: non distended Laboratory Tests Test 05/15/17 06:00 White Blood Count 5.1 K/UL (4.8-10.8) Red Blood Count 3.74 M/UL (4.70-6.10) L Hemoglobin 12.2 G/DL (14.2-18.0) L Hematocrit 36.3 % (42.0-52.0) L Mean Corpuscular Volume 97 FL (80-99) Mean Corpuscular Hemoglobin 32.6 PG (27.0-31.0) H Mean Corpuscular Hemoglobin Concent 33.6 G/DL (32.0-36.0) Red Cell Distribution Width 12.2 % (11.6-14.8) Platelet Count 176 K/UL (150-450) Mean Platelet Volume 8.7 FL (6.5-10.1) Neutrophils (%) (Auto) 62.2 % (45.0-75.0) Lymphocytes (%) (Auto) 24.6 % (20.0-45.0) Monocytes (%) (Auto) 10.2 % (1.0-10.0) H Eosinophils (%) (Auto) 1.8 % (0.0-3.0) Basophils (%) (Auto) 1.2 % (0.0-2.0) Sodium Level 135 mEQ/L (135-145) Potassium Level 3.6 mEQ/L (3.4-4.9) Chloride Level 97 mEQ/L (98-107) L Carbon Dioxide Level 29 mEQ/L (20-30) Anion Gap 9 (5-15) Blood Urea Nitrogen 10 mg/dL (7-23) Creatinine 1.3 mg/dL (0.7-1.2) H Estimat Glomerular Filtration Rate > 60 mL/min (>60) Glucose Level 103 mg/dL (74-106) Calcium Level 8.9 mg/dL (8.6-10.2) Current Medications Medications (Trade) Dose Ordered Sig/Jonnie Route PRN Reason Start Time Stop Time Status Last Admin Dose Admin Acetaminophen (Tylenol) 650 mg Q4H PRN ORAL FEVER 05/12/17 09:00 06/11/17 08:59 Acetaminophen (Tylenol) 650 mg Q4H PRN ORAL Mild Pain (Pain Scale 1-3) 05/12/17 09:00 06/11/17 08:59 Acetaminophen (Tylenol) 650 mg Q4H PRN RECTAL Prn Headache/Temp > 100.5 05/12/17 09:45 06/11/17 09:44 Acetaminophen/ Hydrocodone Bitart ([place] 5/325) 1 tab Q6H PRN ORAL Moderate Pain (Pain Scale 4-6) 05/12/17 01:00 05/19/17 00:59 05/15/17 06:50 Al Hydroxide/Mg Hydroxide (Mylanta) 30 ml EVERY 4 HOURS PRN ORAL Abdominal cramps 05/13/17 18:30 06/12/17 18:29 05/14/17 08:25 Bisacodyl (Dulcolax) 10 mg DAILYPRN PRN RECTAL Constipation 05/12/17 09:00 06/11/17 08:59 05/14/17 14:27 Ketorolac Tromethamine (Toradol 30mg) 30 mg Q6H PRN IM For Pain 05/12/17 13:00 05/17/17 12:59 05/14/17 14:40 Morphine Sulfate (Morphine Sulfate) 1 mg Q4H PRN IVP pain scale 1-3 05/12/17 13:00 05/19/17 12:59 Morphine Sulfate (Morphine Sulfate) 2 mg Q4H PRN IVP pain scale 4-6 05/12/17 13:00 05/19/17 12:59 05/14/17 00:10 Morphine Sulfate (Morphine Sulfate) 4 mg Q4H PRN IVP pain score 7-10 05/12/17 13:00 05/19/17 12:59 05/13/17 12:36 Ondansetron HCl (Zofran) 4 mg Q6H PRN IVP Nausea & Vomiting 05/12/17 01:00 06/11/17 00:59 05/13/17 18:34 Pantoprazole (Protonix) 40 mg DAILY ORAL 05/13/17 18:30 06/12/17 18:29 05/15/17 09:59 Piperacillin Sod/ Tazobactam Sod/ Dextrose (Zosyn/D5W) 110 ml @ 27.5 mls/hr Q8H IVPB 05/12/17 02:00 05/19/17 01:59 05/15/17 09:59 Polyethylene Glycol (Miralax) 17 gm DAILY PRN ORAL Constipation 05/12/17 09:00 06/11/17 08:59 05/14/17 13:16 Simethicone (Mylicon) 80 mg TID PRN ORAL Abdominal cramps 05/13/17 18:30 06/12/17 18:29 05/14/17 14:39 Tamsulosin HCl (Flomax) 0.4 mg BEDTIME ORAL 05/13/17 21:00 06/12/17 20:59 05/14/17 21:08 Temazepam (Restoril) 15 mg HSPRN PRN ORAL Insomnia 05/12/17 09:00 05/19/17 08:59 SUSAN NICHOLS M.D. May 15, 2017 11:17
--- NOTE | 2017-05-15 13:07 | Internal Med Progress Note ---
Subjective Date of Service: May 15, 2017 Physician Name KatieCate Attending Physician Misael Whatley MD Current Medications Medications (Trade) Dose Ordered Sig/Jonnie Route PRN Reason Start Time Stop Time Status Last Admin Dose Admin Acetaminophen (Tylenol) 650 mg Q4H PRN ORAL FEVER 05/12/17 09:00 06/11/17 08:59 Acetaminophen (Tylenol) 650 mg Q4H PRN ORAL Mild Pain (Pain Scale 1-3) 05/12/17 09:00 06/11/17 08:59 Acetaminophen (Tylenol) 650 mg Q4H PRN RECTAL Prn Headache/Temp > 100.5 05/12/17 09:45 06/11/17 09:44 Acetaminophen/ Hydrocodone Bitart ([place] 5/325) 1 tab Q6H PRN ORAL Moderate Pain (Pain Scale 4-6) 05/12/17 01:00 05/19/17 00:59 05/15/17 06:50 Al Hydroxide/Mg Hydroxide (Mylanta) 30 ml EVERY 4 HOURS PRN ORAL Abdominal cramps 05/13/17 18:30 06/12/17 18:29 05/14/17 08:25 Bisacodyl (Dulcolax) 10 mg DAILYPRN PRN RECTAL Constipation 05/12/17 09:00 06/11/17 08:59 05/14/17 14:27 Ketorolac Tromethamine (Toradol 30mg) 30 mg Q6H PRN IM For Pain 05/12/17 13:00 05/17/17 12:59 05/14/17 14:40 Morphine Sulfate (Morphine Sulfate) 1 mg Q4H PRN IVP pain scale 1-3 05/12/17 13:00 05/19/17 12:59 Morphine Sulfate (Morphine Sulfate) 2 mg Q4H PRN IVP pain scale 4-6 05/12/17 13:00 05/19/17 12:59 05/14/17 00:10 Morphine Sulfate (Morphine Sulfate) 4 mg Q4H PRN IVP pain score 7-10 05/12/17 13:00 05/19/17 12:59 05/13/17 12:36 Ondansetron HCl (Zofran) 4 mg Q6H PRN IVP Nausea & Vomiting 05/12/17 01:00 06/11/17 00:59 05/13/17 18:34 Pantoprazole (Protonix) 40 mg DAILY ORAL 05/13/17 18:30 06/12/17 18:29 05/15/17 09:59 Piperacillin Sod/ Tazobactam Sod/ Dextrose (Zosyn/D5W) 110 ml @ 27.5 mls/hr Q8H IVPB 05/12/17 02:00 05/19/17 01:59 05/15/17 09:59 Polyethylene Glycol (Miralax) 17 gm DAILY PRN ORAL Constipation 05/12/17 09:00 06/11/17 08:59 05/14/17 13:16 Simethicone (Mylicon) 80 mg TID PRN ORAL Abdominal cramps 05/13/17 18:30 06/12/17 18:29 05/14/17 14:39 Tamsulosin HCl (Flomax) 0.4 mg BEDTIME ORAL 05/13/17 21:00 06/12/17 20:59 05/14/17 21:08 Temazepam (Restoril) 15 mg HSPRN PRN ORAL Insomnia 05/12/17 09:00 05/19/17 08:59 Allergies: Coded Allergies: No Known Allergies (Unverified , 05/11/17) ROS Limited/Unobtainable: No Constitutional: Reports: no symptoms HEENT: Reports: no symptoms Cardiovascular: Reports: no symptoms Respiratory: Reports: no symptoms Gastrointestinal/Abdominal: Reports: abdomen distended Genitourinary: Reports: no symptoms Neurologic/Psychiatric: Reports: no symptoms Subjective 37 YO M admitted with acute appendicitis. S/P laparoscopic appendectomy . Cover for Int Med-Dr Whatley. Objective Last Vital Signs Date Time Temp Pulse Resp B/P Pulse Ox O2 Delivery O2 Flow Rate FiO2 05/15/17 12:14 97.9 70 16 122/85 98 Nasal Cannula 05/13/17 16:01 2.0 Laboratory Tests Test 05/15/17 06:00 White Blood Count 5.1 K/UL (4.8-10.8) Red Blood Count 3.74 M/UL (4.70-6.10) L Hemoglobin 12.2 G/DL (14.2-18.0) L Hematocrit 36.3 % (42.0-52.0) L Mean Corpuscular Volume 97 FL (80-99) Mean Corpuscular Hemoglobin 32.6 PG (27.0-31.0) H Mean Corpuscular Hemoglobin Concent 33.6 G/DL (32.0-36.0) Red Cell Distribution Width 12.2 % (11.6-14.8) Platelet Count 176 K/UL (150-450) Mean Platelet Volume 8.7 FL (6.5-10.1) Neutrophils (%) (Auto) 62.2 % (45.0-75.0) Lymphocytes (%) (Auto) 24.6 % (20.0-45.0) Monocytes (%) (Auto) 10.2 % (1.0-10.0) H Eosinophils (%) (Auto) 1.8 % (0.0-3.0) Basophils (%) (Auto) 1.2 % (0.0-2.0) Sodium Level 135 mEQ/L (135-145) Potassium Level 3.6 mEQ/L (3.4-4.9) Chloride Level 97 mEQ/L (98-107) L Carbon Dioxide Level 29 mEQ/L (20-30) Anion Gap 9 (5-15) Blood Urea Nitrogen 10 mg/dL (7-23) Creatinine 1.3 mg/dL (0.7-1.2) H Estimat Glomerular Filtration Rate > 60 mL/min (>60) Glucose Level 103 mg/dL (74-106) Calcium Level 8.9 mg/dL (8.6-10.2) Intake and Output 05/14/17 05/15/17 19:00 07:00 Intake Total 590.0 ml 220.0 ml Output Total 730 ml 360 ml Balance -140.0 ml -140.0 ml Intake Oral 480 ml IV Total 110.0 ml 220.0 ml Output Urine Total 600 ml 320 ml Drainage Total 130 ml 40 ml # Bowel Movements 1 1 Objective General Appearance: WD/WN, no apparent distress, alert EENT: PERRL/EOMI, normal ENT inspection Neck: non-tender, normal alignment, supple, normal inspection Cardiovascular: normal peripheral pulses, normal rate, regular rhythm, no gallop/murmur, no JVD Respiratory/Chest: chest wall non-tender, lungs clear, normal breath sounds, no respiratory distress, no accessory muscle use Abdomen: no organomegaly, no mass, absent bowel sounds, tender to palpitation; distended. Dressing clean and dry. ALESIA drain in place-serosanguineous drainage. 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 D/C soni cath (2) Appendicitis with perforation Assessment & Plan: S/P laparoscopic appendectomy 05/12/17. ALESIA drain in place. Follow surgery recs. Advance diet as tolerated per surgery recs. (3) Abdominal pain (4) Post-op pain Assessment & Plan: Cont morphine. (5) Pelvic abscess in male Assessment & Plan: Cont antibiotics. Cont ALESIA drain. See surgery note. Status: progressing Assessment/Plan Advance diet CATE PULIDO May 15, 2017 13:07
[2017-05-15] MEDS: Tamsulosin 0.4mg cap ORAL SCH (21:17)
[2017-05-16] VITALS: BP 110/65
[2017-05-16] MEDS: Miralax 17gm pkt ORAL PRN (02:05)
[2017-05-16] MEDS: Simethicone 80mg tab ORAL PRN (02:05)
[2017-05-16] MEDS: Piperacillin/Tazobactam 3.375 GM in D5W 110 ML IVPB SCH ×3 (02:08→18:34)
[2017-05-16 08:00] VITALS: BP 128/78
[2017-05-16 10:11] LABS: BASOPHILS % (AUTO) 1.2 % (0.0-2.0); EOSINOPHILS % (AUTO) 1.9 % (0.0-3.0); LYMPHOCYTES % (AUTO) 25.5 % (20.0-45.0); MEAN CORPUSCULAR VOLUME 97 FL (80-99); MEAN PLATELET VOLUME 7.8 FL (6.5-10.1); MONOCYTES % (AUTO) 7.9 % (1.0-10.0); NEUTROPHILS % (AUTO) 63.4 % (45.0-75.0); PLATELET COUNT 197 K/UL (150-450); RED BLOOD COUNT 4.33 M/UL (4.70-6.10); RED CELL DISTRIBUTION WIDTH 12.3 % (11.6-14.8); WHITE BLOOD COUNT 5.7 K/UL (4.8-10.8)
--- NOTE | 2017-05-16 10:11 | General Surgery Progress Note ---
General Surgery-Progress Note Subjective Day of Surgery: poday 4 Symptoms: pain same, tolerating diet, passing flatus, BM Objective Last 24 Hour Vital Signs Date Time Temp Pulse Resp B/P Pulse Ox O2 Delivery O2 Flow Rate FiO2 05/16/17 08:00 97.3 90 20 128/78 98 Room Air 05/16/17 00:00 97.9 64 18 110/65 96 Room Air 05/15/17 20:00 98.1 77 18 140/76 96 Room Air 05/15/17 17:04 97.9 79 16 123/61 95 Room Air 05/15/17 17:02 99.1 106 20 103/59 95 Room Air 05/15/17 16:21 97.9 05/15/17 16:00 97.9 79 16 123/61 95 Room Air 05/15/17 12:14 97.9 70 16 122/85 98 Nasal Cannula I&O Intake and Output 05/15/17 05/16/17 19:00 07:00 Intake Total 1200 ml 1820.0 ml Output Total 40 ml 125 ml Balance 1160 ml 1695.0 ml Intake Oral 1200 ml 1600 ml IV Total 220.0 ml Drainage Total 40 ml 125 ml # Voids 3 6 # Bowel Movements 2 Dressing: dry Wound: clean Drains: other - jason removed Cardiovascular: RSR Respiratory: clear Abdomen: soft, non-tender, present bowel sounds Extremities: no edema, no tenderness, no cyanosis Additional Comments doing well post-op . Tolerating soft diet, has had bm. Febrile. drailn out ok to dc home from general surgery point of view Followup Dr Loaiza Sunday [phone] Thanks LAUREL HERNANDEZ May 16, 2017 10:11
[2017-05-16 10:32] LABS: ANION GAP 13 (5-15); CALCIUM 9.4 mg/dL (8.6-10.2); CARBON DIOXIDE 26 mEQ/L (20-30); CHLORIDE 99 mEQ/L (98-107); CREATININE 1.1 mg/dL (0.7-1.2); GLOMERULAR FILTRATION RATE > 60 mL/min (>60); HEMOLYSIS 7; POTASSIUM 3.9 mEQ/L (3.4-4.9); SODIUM 138 mEQ/L (135-145)
[2017-05-16 12:00] VITALS: BP 114/47
--- NOTE | 2017-05-16 13:02 | Internal Med Progress Note ---
Subjective Date of Service: May 16, 2017 Physician Name Pulido,Cate Attending Physician Misael Whatley MD Current Medications Medications (Trade) Dose Ordered Sig/Jonnie Route PRN Reason Start Time Stop Time Status Last Admin Dose Admin Acetaminophen (Tylenol) 650 mg Q4H PRN ORAL FEVER 05/12/17 09:00 06/11/17 08:59 Acetaminophen (Tylenol) 650 mg Q4H PRN ORAL Mild Pain (Pain Scale 1-3) 05/12/17 09:00 06/11/17 08:59 Acetaminophen (Tylenol) 650 mg Q4H PRN RECTAL Prn Headache/Temp > 100.5 05/12/17 09:45 06/11/17 09:44 Acetaminophen/ Hydrocodone Bitart ([place] 5/325) 1 tab Q6H PRN ORAL Moderate Pain (Pain Scale 4-6) 05/12/17 01:00 05/19/17 00:59 05/15/17 15:22 Al Hydroxide/Mg Hydroxide (Mylanta) 30 ml EVERY 4 HOURS PRN ORAL Abdominal cramps 05/13/17 18:30 06/12/17 18:29 05/14/17 08:25 Bisacodyl (Dulcolax) 10 mg DAILYPRN PRN RECTAL Constipation 05/12/17 09:00 06/11/17 08:59 05/14/17 14:27 Ketorolac Tromethamine (Toradol 30mg) 30 mg Q6H PRN IM For Pain 05/12/17 13:00 05/17/17 12:59 05/14/17 14:40 Morphine Sulfate (Morphine Sulfate) 1 mg Q4H PRN IVP pain scale 1-3 05/12/17 13:00 05/19/17 12:59 Morphine Sulfate (Morphine Sulfate) 2 mg Q4H PRN IVP pain scale 4-6 05/12/17 13:00 05/19/17 12:59 05/14/17 00:10 Morphine Sulfate (Morphine Sulfate) 4 mg Q4H PRN IVP pain score 7-10 05/12/17 13:00 05/19/17 12:59 05/13/17 12:36 Ondansetron HCl (Zofran) 4 mg Q6H PRN IVP Nausea & Vomiting 05/12/17 01:00 06/11/17 00:59 05/13/17 18:34 Pantoprazole (Protonix) 40 mg DAILY ORAL 05/13/17 18:30 06/12/17 18:29 05/16/17 09:35 Piperacillin Sod/ Tazobactam Sod/ Dextrose (Zosyn/D5W) 110 ml @ 27.5 mls/hr Q8H IVPB 05/12/17 02:00 05/19/17 01:59 05/16/17 09:35 Polyethylene Glycol (Miralax) 17 gm DAILY PRN ORAL Constipation 05/12/17 09:00 06/11/17 08:59 05/16/17 02:05 Simethicone (Mylicon) 80 mg TID PRN ORAL Abdominal cramps 05/13/17 18:30 06/12/17 18:29 05/16/17 02:05 Tamsulosin HCl (Flomax) 0.4 mg BEDTIME ORAL 05/13/17 21:00 06/12/17 20:59 05/15/17 21:17 Temazepam (Restoril) 15 mg HSPRN PRN ORAL Insomnia 05/12/17 09:00 05/19/17 08:59 Allergies: Coded Allergies: No Known Allergies (Unverified , 05/11/17) ROS Limited/Unobtainable: No Constitutional: Reports: no symptoms HEENT: Reports: no symptoms Cardiovascular: Reports: no symptoms Respiratory: Reports: no symptoms Gastrointestinal/Abdominal: Reports: constipated Genitourinary: Reports: no symptoms Neurologic/Psychiatric: Reports: no symptoms Subjective 37 YO M admitted with acute appendicitis. S/P laparoscopic appendectomy . Cover for Int [place]-Dr Whatley. No bowel movement since yesterday. Tolerating PO Objective Last Vital Signs Date Time Temp Pulse Resp B/P Pulse Ox O2 Delivery O2 Flow Rate FiO2 05/16/17 12:00 98.1 66 20 114/47 97 Room Air 05/13/17 16:01 2.0 Laboratory Tests Test 05/16/17 04:00 05/16/17 09:30 White Blood Count 5.7 K/UL (4.8-10.8) Red Blood Count 4.33 M/UL (4.70-6.10) L Hemoglobin 13.9 G/DL (14.2-18.0) L Hematocrit 42.1 % (42.0-52.0) Mean Corpuscular Volume 97 FL (80-99) Mean Corpuscular Hemoglobin 32.0 PG (27.0-31.0) H Mean Corpuscular Hemoglobin Concent 33.0 G/DL (32.0-36.0) Red Cell Distribution Width 12.3 % (11.6-14.8) Platelet Count 197 K/UL (150-450) Mean Platelet Volume 7.8 FL (6.5-10.1) Neutrophils (%) (Auto) 63.4 % (45.0-75.0) Lymphocytes (%) (Auto) 25.5 % (20.0-45.0) Monocytes (%) (Auto) 7.9 % (1.0-10.0) Eosinophils (%) (Auto) 1.9 % (0.0-3.0) Basophils (%) (Auto) 1.2 % (0.0-2.0) Sodium Level 138 mEQ/L (135-145) Potassium Level 3.9 mEQ/L (3.4-4.9) Chloride Level 99 mEQ/L (98-107) Carbon Dioxide Level 26 mEQ/L (20-30) Anion Gap 13 (5-15) Blood Urea Nitrogen 7 mg/dL (7-23) Creatinine 1.1 mg/dL (0.7-1.2) Estimat Glomerular Filtration Rate > 60 mL/min (>60) Glucose Level 116 mg/dL (74-106) H Calcium Level 9.4 mg/dL (8.6-10.2) Intake and Output 05/15/17 05/16/17 19:00 07:00 Intake Total 1200 ml 1820.0 ml Output Total 40 ml 125 ml Balance 1160 ml 1695.0 ml Intake Oral 1200 ml 1600 ml IV Total 220.0 ml Drainage Total 40 ml 125 ml # Voids 3 6 # Bowel Movements 2 Objective General Appearance: WD/WN, no apparent distress, alert EENT: PERRL/EOMI, normal ENT inspection Neck: non-tender, normal alignment, supple, normal inspection Cardiovascular: normal peripheral pulses, normal rate, regular rhythm, no gallop/murmur, no JVD Respiratory/Chest: chest wall non-tender, lungs clear, normal breath sounds, no respiratory distress, no accessory muscle use Abdomen: no organomegaly, no mass, absent bowel sounds, tender to palpitation; distended. Dressing clean and dry. ALESIA drain in place-serosanguineous drainage. 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 D/C soni cath (2) Appendicitis with perforation Assessment & Plan: S/P laparoscopic appendectomy 05/12/17. ALESIA drain in place. Follow surgery recs. Advance diet as tolerated per surgery recs. (3) Abdominal pain (4) Post-op pain Assessment & Plan: Cont morphine. (5) Pelvic abscess in male Assessment & Plan: Cont IV antibiotics-change to oral per ID. D/C ALESIA drain. See surgery note. Status: progressing Assessment/Plan Advance diet. Plan to D/C am 05/17/17 with home health. Will need oral antibiotic prior to discharge-ID aware. CATE PULIDO May 16, 2017 13:02
--- NOTE | 2017-05-16 15:38 | Pulmonology Progress Note ---
Assessment/Plan Problems: (1) Appendicitis with perforation (2) Post-op pain Assessment/Plan continue Zosy advance diet check electrolytes f/u by Surgery dvt prophylaxis ambulate dc home in am if ok with ID and surgeon Subjective ROS Limited/Unobtainable: No Constitutional: Reports: no symptoms HEENT: Repors: no symptoms Respiratory: Reports: no symptoms Gastrointestinal/Abdominal: Reports: no symptoms Allergies: Coded Allergies: No Known Allergies (Unverified , 05/11/17) Objective Last 24 Hour Vital Signs Date Time Temp Pulse Resp B/P Pulse Ox O2 Delivery O2 Flow Rate FiO2 05/16/17 12:00 98.1 66 20 114/47 97 Room Air 05/16/17 08:00 97.3 90 20 128/78 98 Room Air 05/16/17 00:00 97.9 64 18 110/65 96 Room Air 05/15/17 20:00 98.1 77 18 140/76 96 Room Air 05/15/17 17:04 97.9 79 16 123/61 95 Room Air 05/15/17 17:02 99.1 106 20 103/59 95 Room Air 05/15/17 16:21 97.9 05/15/17 16:00 97.9 79 16 123/61 95 Room Air Intake and Output 05/15/17 05/16/17 19:00 07:00 Intake Total 1200 ml 1820.0 ml Output Total 40 ml 125 ml Balance 1160 ml 1695.0 ml Intake Oral 1200 ml 1600 ml IV Total 220.0 ml Drainage Total 40 ml 125 ml # Voids 3 6 # Bowel Movements 2 Objective drains are removed HEENT: normocephalic, atraumatic Respiratory/Chest: chest wall non-tender, lungs clear Cardiovascular: normal peripheral pulses, normal rate Abdomen: normal bowel sounds, soft, non tender Extremities: no cyanosis, no clubbing 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 Lymphatic: no neck adenopathy Laboratory Tests 05/16/17 04:00: White Blood Count 5.7, Red Blood Count 4.33L, Hemoglobin 13.9L, Hematocrit 42.1 , Mean Corpuscular Volume 97, Mean Corpuscular Hemoglobin 32.0H, Mean Corpuscular Hemoglobin Concent 33.0, Red Cell Distribution Width 12.3, Platelet Count 197, Mean Platelet Volume 7.8, Neutrophils (%) (Auto) 63.4, Lymphocytes (% ) (Auto) 25.5, Monocytes (%) (Auto) 7.9, Eosinophils (%) (Auto) 1.9, Basophils ( %) (Auto) 1.2 05/16/17 09:30: Sodium Level 138, Potassium Level 3.9, Chloride Level 99, Carbon Dioxide Level 26, Anion Gap 13, Blood Urea Nitrogen 7, Creatinine 1.1, Estimat Glomerular Filtration Rate > 60, Glucose Level 116H, Calcium Level 9.4 Current Medications Medications (Trade) Dose Ordered Sig/Jonnie Route PRN Reason Start Time Stop Time Status Last Admin Dose Admin Acetaminophen (Tylenol) 650 mg Q4H PRN ORAL FEVER 05/12/17 09:00 06/11/17 08:59 Acetaminophen (Tylenol) 650 mg Q4H PRN ORAL Mild Pain (Pain Scale 1-3) 05/12/17 09:00 06/11/17 08:59 Acetaminophen (Tylenol) 650 mg Q4H PRN RECTAL Prn Headache/Temp > 100.5 05/12/17 09:45 06/11/17 09:44 Acetaminophen/ Hydrocodone Bitart ([place] 5/325) 1 tab Q6H PRN ORAL Moderate Pain (Pain Scale 4-6) 05/12/17 01:00 05/19/17 00:59 05/15/17 15:22 Al Hydroxide/Mg Hydroxide (Mylanta) 30 ml EVERY 4 HOURS PRN ORAL Abdominal cramps 05/13/17 18:30 06/12/17 18:29 05/14/17 08:25 Bisacodyl (Dulcolax) 10 mg DAILYPRN PRN RECTAL Constipation 05/12/17 09:00 06/11/17 08:59 05/14/17 14:27 Ketorolac Tromethamine (Toradol 30mg) 30 mg Q6H PRN IM For Pain 05/12/17 13:00 05/17/17 12:59 05/14/17 14:40 Morphine Sulfate (Morphine Sulfate) 1 mg Q4H PRN IVP pain scale 1-3 05/12/17 13:00 05/19/17 12:59 Morphine Sulfate (Morphine Sulfate) 2 mg Q4H PRN IVP pain scale 4-6 05/12/17 13:00 05/19/17 12:59 7/3/17 00:10 Morphine Sulfate (Morphine Sulfate) 4 mg Q4H PRN IVP pain score 7-10 05/12/17 13:00 05/19/17 12:59 05/13/17 12:36 Ondansetron HCl (Zofran) 4 mg Q6H PRN IVP Nausea & Vomiting 05/12/17 01:00 06/11/17 00:59 05/13/17 18:34 Pantoprazole (Protonix) 40 mg DAILY ORAL 05/13/17 18:30 06/12/17 18:29 05/16/17 09:35 Piperacillin Sod/ Tazobactam Sod/ Dextrose (Zosyn/D5W) 110 ml @ 27.5 mls/hr Q8H IVPB 05/12/17 02:00 05/19/17 01:59 05/16/17 09:35 Polyethylene Glycol (Miralax) 17 gm DAILY PRN ORAL Constipation 05/12/17 09:00 06/11/17 08:59 05/16/17 02:05 Simethicone (Mylicon) 80 mg TID PRN ORAL Abdominal cramps 05/13/17 18:30 06/12/17 18:29 05/16/17 02:05 Tamsulosin HCl (Flomax) 0.4 mg BEDTIME ORAL 05/13/17 21:00 06/12/17 20:59 05/15/17 21:17 Temazepam (Restoril) 15 mg HSPRN PRN ORAL Insomnia 05/12/17 09:00 05/19/17 08:59 MAHESH MCLEAN May 16, 2017 15:38
[2017-05-16 16:00] VITALS: BP 131/73
--- NOTE | 2017-05-16 16:28 | Infectious Diseases Prog Note ---
Assessment/Plan Assessment/Plan ASSESSMENT: The patient is a 37-year-old male with perforated appendicitis with early pelvic abscess SP surgery Leukocytosis, SP PLAN: continue the patient on Zosyn d# 5 / 10 , upon DC will change to Cipro and Flagyl Monitor CBC. Monitor BMP possible DC today , ( cleared from ID standpoint ) , DW PCP Subjective Allergies: Coded Allergies: No Known Allergies (Unverified , 05/11/17) Subjective comfortable Objective Vital Signs Last 24 Hour Vital Signs Date Time Temp Pulse Resp B/P Pulse Ox O2 Delivery O2 Flow Rate FiO2 05/16/17 12:00 98.1 66 20 114/47 97 Room Air 05/16/17 08:00 97.3 90 20 128/78 98 Room Air 05/16/17 00:00 97.9 64 18 110/65 96 Room Air 05/15/17 20:00 98.1 77 18 140/76 96 Room Air 05/15/17 17:04 97.9 79 16 123/61 95 Room Air 05/15/17 17:02 99.1 106 20 103/59 95 Room Air Height (Feet): 5 Height (Inches): 10.00 Weight (Pounds): 194 HEENT: anicteric Respiratory/Chest: no respiratory distress Cardiovascular: regular rhythm Abdomen: no organomegaly Laboratory Tests Test 05/16/17 04:00 05/16/17 09:30 White Blood Count 5.7 K/UL (4.8-10.8) Red Blood Count 4.33 M/UL (4.70-6.10) L Hemoglobin 13.9 G/DL (14.2-18.0) L Hematocrit 42.1 % (42.0-52.0) Mean Corpuscular Volume 97 FL (80-99) Mean Corpuscular Hemoglobin 32.0 PG (27.0-31.0) H Mean Corpuscular Hemoglobin Concent 33.0 G/DL (32.0-36.0) Red Cell Distribution Width 12.3 % (11.6-14.8) Platelet Count 197 K/UL (150-450) Mean Platelet Volume 7.8 FL (6.5-10.1) Neutrophils (%) (Auto) 63.4 % (45.0-75.0) Lymphocytes (%) (Auto) 25.5 % (20.0-45.0) Monocytes (%) (Auto) 7.9 % (1.0-10.0) Eosinophils (%) (Auto) 1.9 % (0.0-3.0) Basophils (%) (Auto) 1.2 % (0.0-2.0) Sodium Level 138 mEQ/L (135-145) Potassium Level 3.9 mEQ/L (3.4-4.9) Chloride Level 99 mEQ/L (98-107) Carbon Dioxide Level 26 mEQ/L (20-30) Anion Gap 13 (5-15) Blood Urea Nitrogen 7 mg/dL (7-23) Creatinine 1.1 mg/dL (0.7-1.2) Estimat Glomerular Filtration Rate > 60 mL/min (>60) Glucose Level 116 mg/dL (74-106) H Calcium Level 9.4 mg/dL (8.6-10.2) Current Medications Medications (Trade) Dose Ordered Sig/Jonnie Route PRN Reason Start Time Stop Time Status Last Admin Dose Admin Acetaminophen (Tylenol) 650 mg Q4H PRN ORAL FEVER 05/12/17 09:00 06/11/17 08:59 Acetaminophen (Tylenol) 650 mg Q4H PRN ORAL Mild Pain (Pain Scale 1-3) 05/12/17 09:00 06/11/17 08:59 Acetaminophen (Tylenol) 650 mg Q4H PRN RECTAL Prn Headache/Temp > 100.5 05/12/17 09:45 06/11/17 09:44 Acetaminophen/ Hydrocodone Bitart ([place] 5/325) 1 tab Q6H PRN ORAL Moderate Pain (Pain Scale 4-6) 05/12/17 01:00 05/19/17 00:59 05/15/17 15:22 Al Hydroxide/Mg Hydroxide (Mylanta) 30 ml EVERY 4 HOURS PRN ORAL Abdominal cramps 05/13/17 18:30 06/12/17 18:29 05/14/17 08:25 Bisacodyl (Dulcolax) 10 mg DAILYPRN PRN RECTAL Constipation 05/12/17 09:00 06/11/17 08:59 05/14/17 14:27 Ketorolac Tromethamine (Toradol 30mg) 30 mg Q6H PRN IM For Pain 05/12/17 13:00 05/17/17 12:59 05/14/17 14:40 Morphine Sulfate (Morphine Sulfate) 1 mg Q4H PRN IVP pain scale 1-3 05/12/17 13:00 05/19/17 12:59 Morphine Sulfate (Morphine Sulfate) 2 mg Q4H PRN IVP pain scale 4-6 05/12/17 13:00 05/19/17 12:59 05/14/17 00:10 Morphine Sulfate (Morphine Sulfate) 4 mg Q4H PRN IVP pain score 7-10 05/12/17 13:00 05/19/17 12:59 05/13/17 12:36 Ondansetron HCl (Zofran) 4 mg Q6H PRN IVP Nausea & Vomiting 05/12/17 01:00 06/11/17 00:59 05/13/17 18:34 Pantoprazole (Protonix) 40 mg DAILY ORAL 05/13/17 18:30 06/12/17 18:29 05/16/17 09:35 Piperacillin Sod/ Tazobactam Sod/ Dextrose (Zosyn/D5W) 110 ml @ 27.5 mls/hr Q8H IVPB 05/12/17 02:00 05/19/17 01:59 05/16/17 09:35 Polyethylene Glycol (Miralax) 17 gm DAILY PRN ORAL Constipation 05/12/17 09:00 06/11/17 08:59 05/16/17 02:05 Simethicone (Mylicon) 80 mg TID PRN ORAL Abdominal cramps 05/13/17 18:30 06/12/17 18:29 05/16/17 02:05 Tamsulosin HCl (Flomax) 0.4 mg BEDTIME ORAL 05/13/17 21:00 06/12/17 20:59 05/15/17 21:17 Temazepam (Restoril) 15 mg HSPRN PRN ORAL Insomnia 05/12/17 09:00 05/19/17 08:59 SUSAN NICHOLS M.D. May 16, 2017 16:28
[2017-05-16 20:00] VITALS: BP 123/85
[2017-05-16] MEDS: Tamsulosin 0.4mg cap ORAL SCH (20:04)
[2017-05-16] MEDS: Norco 5mg/325mg tab ORAL PRN (20:04)
[2017-05-17] VITALS: BP 127/66
[2017-05-17] MEDS: Piperacillin/Tazobactam 3.375 GM in D5W 110 ML IVPB SCH ×2 (01:35→10:00)
[2017-05-17 07:07] LABS: BASOPHILS % (AUTO) 1.8 % (0.0-2.0); LYMPHOCYTES % (AUTO) 29.2 % (20.0-45.0); MEAN CORPUSCULAR HEMOGLOBIN 32.2 PG (27.0-31.0); MEAN CORPUSCULAR HGB CONC 32.8 G/DL (32.0-36.0); MEAN CORPUSCULAR VOLUME 98 FL (80-99); MEAN PLATELET VOLUME 8.2 FL (6.5-10.1); MONOCYTES % (AUTO) 9.6 % (1.0-10.0); NEUTROPHILS % (AUTO) 57.5 % (45.0-75.0); PLATELET COUNT 217 K/UL (150-450); RED BLOOD COUNT 4.01 M/UL (4.70-6.10); RED CELL DISTRIBUTION WIDTH 12.2 % (11.6-14.8); WHITE BLOOD COUNT 5.4 K/UL (4.8-10.8)
[2017-05-17 07:30] LABS: ANION GAP 11 (5-15); CALCIUM 9.2 mg/dL (8.6-10.2); CARBON DIOXIDE 27 mEQ/L (20-30); CHLORIDE 102 mEQ/L (98-107); CREATININE 1.2 mg/dL (0.7-1.2); GLOMERULAR FILTRATION RATE > 60 mL/min (>60); HEMOLYSIS 3; POTASSIUM 3.7 mEQ/L (3.4-4.9); SODIUM 140 mEQ/L (135-145)
[2017-05-17 08:03] VITALS: BP 114/76
--- NOTE | 2017-05-17 10:33 | General Surgery Progress Note ---
General Surgery-Progress Note Subjective Symptoms: improved Objective Last 24 Hour Vital Signs Date Time Temp Pulse Resp B/P Pulse Ox O2 Delivery O2 Flow Rate FiO2 05/17/17 08:03 97.7 76 21 114/76 97 Room Air 05/17/17 00:00 98.1 66 18 127/66 96 Room Air 05/16/17 20:00 97.9 70 19 123/85 98 Room Air 05/16/17 16:00 97.2 83 20 131/73 98 Room Air 05/16/17 12:00 98.1 66 20 114/47 97 Room Air I&O Intake and Output 05/16/17 05/17/17 19:00 07:00 Intake Total 450.0 ml 532.5 ml Balance 450.0 ml 532.5 ml Intake Oral 340 ml 340 ml IV Total 110.0 ml 192.5 ml # Voids 4 3 # Bowel Movements 1 Dressing: dry Wound: clean Drains: none Cardiovascular: RSR Respiratory: clear Abdomen: soft Extremities: no edema Laboratory Tests Test 05/17/17 06:15 White Blood Count 5.4 K/UL (4.8-10.8) Red Blood Count 4.01 M/UL (4.70-6.10) L Hemoglobin 12.9 G/DL (14.2-18.0) L Hematocrit 39.4 % (42.0-52.0) L Mean Corpuscular Volume 98 FL (80-99) Mean Corpuscular Hemoglobin 32.2 PG (27.0-31.0) H Mean Corpuscular Hemoglobin Concent 32.8 G/DL (32.0-36.0) Red Cell Distribution Width 12.2 % (11.6-14.8) Platelet Count 217 K/UL (150-450) Mean Platelet Volume 8.2 FL (6.5-10.1) Neutrophils (%) (Auto) 57.5 % (45.0-75.0) Lymphocytes (%) (Auto) 29.2 % (20.0-45.0) Monocytes (%) (Auto) 9.6 % (1.0-10.0) Eosinophils (%) (Auto) 2.0 % (0.0-3.0) Basophils (%) (Auto) 1.8 % (0.0-2.0) Sodium Level 140 mEQ/L (135-145) Potassium Level 3.7 mEQ/L (3.4-4.9) Chloride Level 102 mEQ/L (98-107) Carbon Dioxide Level 27 mEQ/L (20-30) Anion Gap 11 (5-15) Blood Urea Nitrogen 6 mg/dL (7-23) L Creatinine 1.2 mg/dL (0.7-1.2) Estimat Glomerular Filtration Rate > 60 mL/min (>60) Glucose Level 107 mg/dL (74-106) H Calcium Level 9.2 mg/dL (8.6-10.2) Assessment Post-op Diagnosis perforated appendicitis with early pelvic abscess and small bowel induration Additional Comments Pt is progressing well, tolerating soft diet, having loose stools Plan Additional Comments Pt will be discharged today on PO antibiotics, we will see him in office 05-22-17 Maruice Loaiza MD May 17, 2017 10:33
[2017-05-17] MEDS ORDERED: Tubing IV Secondary IV ONE (10:34)
[2017-05-17] MEDS ORDERED: D5 1/2NS 1000ml IV ONE (10:34)
[2017-05-17] MEDS ORDERED: METRONIDAZOLE500 MG ORAL ×2 (10:36→10:37)
[2017-05-17] MEDS ORDERED: LEVAQUIN500 MG ORAL (10:38)
[2017-05-17 11:42] VITALS: BP 129/93
--- NOTE | 2017-05-18 20:18 | Discharge Summary ---
Discharge Summary Hospital Course Date of Admission May 11, 2017 at 22:59 Date of Discharge May 17, 2017 at 11:50 Admitting Diagnosis HPI Onofre Rg is a 37 year old male who was admitted on May 11, 2017 at 22:59 for Perforated Appendicitis Hospital Course [id number] Discharge Discharge Disposition Patient was discharged to Home with Home Health(06) Discharge Diagnoses: Aniya Marcelo NP May 18, 2017 20:18
--- NOTE | 2017-05-19 05:15 | Discharge Summary 2 SIG ---
DATE OF ADMISSION: 05/11/2017 DATE OF DISCHARGE: 05/17/2017 CONSULTANTS: 1. Timothy Pacheco M.D. 2. Cesar Shane M.D. 3. Gaudencio Rosado M.D. BRIEF HOSPITAL COURSE: The patient is a 37-year-old male, who presented with complaints of abdominal pain that started two days prior to admission, initially localized to the right lower quadrant and has been unable to walk due to pain. He initially presented to [facility] and was found to have appendicitis with possible perforation. He was then transferred to [facility] for insurance purposes. The patient was admitted to medical floor for acute appendicitis. He required emergent appendectomy and surgical consultation was obtained. He was started on IV antibiotic, Zosyn and on 05/12/2017 underwent laparoscopic appendectomy by Dr. Timothy Pacheco. Intraoperatively, the patient had acute suppurative appendicitis with small microperforation. Appendix was with adhesions to the pelvis and adjacent small bowel. It was a successful appendectomy with a linear stapler placed on the appendix and mesoappendix, the ALESIA drain was left in the pelvis. Postoperatively, he was given pain management and was continued on IV hydration and antibiotics. Incentive spirometry was given and had urinary retention. Moore catheter was kept in place and was started on Flomax. He was given morphine p.r.n. Third day postop, Moore catheter was discontinued. The patient was encouraged to ambulate out of bed. He was tolerating a full liquid diet. He was eventually able to void without a Moore and had a bowel movement. Diet was advanced. Drain was discontinued and the patient was cleared for discharge to follow up with Dr. Loaiza on 05/22/2017. He was eventually discharged home on p.o. antibiotics, Levaquin and Flagyl to continue five more days. FINAL DIAGNOSES: 1. Acute appendicitis status post laparoscopic appendectomy. 2. Appendicitis with perforation. 3. Urinary retention. 4. Pelvic abscess. 5. Postop pain. DISPOSITION: The patient was discharged home with home health. Darron Wilson M.D. I have been assigned to dictate discharge summary on this account and I was not involved in the patient's management. Aniya Marcelo N.P. DR: KEKE JOB#: [id number] CC:
== END 2017-05-17 11:50 | disposition home health service (06) | DRG 339 ==
LOC: 4E 22:59
PROC: 0DTJ4ZZ Resection of Appendix, Percutaneous Endoscopic Approach (ICD-10-PCS; principal; 2017-05-12 11:15)
DX: K35.2 Acute appendicitis with generalized peritonitis (principal); R18.8 Other ascites; R33.9 Retention of urine, unspecified; G89.18 Other acute postprocedural pain; K35.3 Acute appendicitis with localized peritonitis
CPT/HCPCS: 36415; 80048; 80053; 82248; 83735; 84100; 85025; 85610; 85730; 94003; 94150; J2250; J2405; J2710